=== PATIENT | female | born 1940 | race Caucasian/White ===

== ENCOUNTER 2023-05-14 14:13 | Outpatient (AMB) | payer MEDICARE, SELFPAY ==
[2023-05-14 14:35] VITALS: BP 128/64; PULSE 86; RESP 16; O2SAT 98; BMI 25.1
--- NOTE | 2023-05-14 14:35 | A.OFFVIS_ITS ---
Intake Vital Signs 3 05/14/23 14:35 Height 5 ft 2 in Weight 137 lb 4 oz BMI 25.1 BP 128/64 Blood Pressure Location Lt brachial Position Sitting Respiration 16 Pulse 86 Pulse Source Pulse Oximeter Pulse Oximetry (%) 98 Oxygen Delivery Method Room Air Intake Visit Reasons: Severe Spinal Stenosis/Confirmed Allergies No Known Allergies Allergy (Verified 05/14/23 14:24) HPI HPI Comments 2 History of Present Illness0 Details Leidy is a very pleasant 82 year old female who presents to the office today, accompanied by her son, for evaluation and management of her chronic lower back pain. Patient reports that she has been suffering with this pain for many years. She was living in [place] until approximately 2 months ago when she moved appear to be closer to her sons. In [place] patient had undergone injections, the last steroid injection was approximately 2 months ago and provided her with 1 month of pain relief. She has also had radiofrequency ablation of her lower back which did not provide her any relief. Patient is currently doing physical therapy and states that this exacerbates her pain. Diclofenac helped her in the past, but her doctor recently discontinued this due to worsening kidney function. She takes gabapentin 100 mg 3 times daily which gives her very little relief. She is on chronic opiates, but states her new doctor in [place] significantly decreased her dose from what she was taking in [place] and therefore is not providing her good pain relief. Unfortunately, patient was under the impression that we would be able to enroll her in our chronic opioid program today. She states that is why she came to see us. Patient had a recent MRI, results were reviewed with patient today, as per below. She has pending appointment with Neurosurgery at [facility]. Her appointment is several weeks away, she has heard about our minimally invasive Spine Center and would like a referral to Neurosurgery here. Patient sources right lower back pain with shooting pains into the leg and groin on the right side. She ambulates with a Rollator walker, and complains of pain in both legs with walking that resolves with rest. She states that she was very active while in [place] and is frustrated by the significant decline in her ability to perform activities of daily living since moving up to [place]. Patient denies red flag symptoms including new loss of bowel, bladder or saddle anesthesia. In terms of muscle damage condition is described as shooting, hot, burning, numb, stabbing, sharp and throbbing. Pain is negatively impacting patient's enjoyment of life, general activity, mood, normal work and sleep. [facility] Medical History (Updated 05/14/23 @ 15:26 by Annelise Mann APRN, WINDOWS SERVER ARCHITECT) Edema Spinal stenosis Other chronic pain Chronic kidney disease (CKD), stage III (moderate) Left ovarian cyst Essential (primary) hypertension Review of Systems Const All systems reviewed & are unremarkable except as noted in HPI and below Physical Exam Vital Signs: Last Vital Signs Pulse 86 05/14/23 14:35 Resp 16 05/14/23 14:35 BP 128/64 05/14/23 14:35 Pulse Ox 98 05/14/23 14:35 Oxygen Delivery Method Room Air 05/14/23 14:35 BMI result Body Mass Index 25.1 General: awake, alert, oriented. Answers questions appropriately. Fully engaged in examination. Skin: warm, dry, intact HEENT: Normocephalic. Hearing intact. Cardiac: External chest normal in appearance. Respiratory: No cough, audible wheezing or stridor. Abdomen: without gross distension. MS: No obvious swelling or deformities. Able to transition from sit to stand unassisted. Ambulates with bilaterally normal heel strike and toe off Nontender to palpation over PSIS, midline lumbar vertebrae BLE strength 5/5 Neurological: Oriented to person, place, time and situation. Thought process intact. Ambulates with use of rollator walker. Psychiatric: Appropriate mood and affect. Good judgment and insight. Results Reviewed Results Reviewed: MRI 04/2023 Assessment & Plan Assessment & Plan (1) Spinal stenosis: Code(s): M48.00 - Spinal stenosis, site unspecified (2) Neurogenic claudication: Code(s): R29.818 - Other symptoms and signs involving the nervous system Plan Leidy is a very pleasant 82-year-old female who presented to the office today for evaluation management of her chronic back pain. Unfortunately, patient was expecting to be prescribed opioid pain medications. She was on a chronic opiates while living in [place], and was looking to continue on them after recent move to [place]. Her primary care physician has given her low-dose opiates but recently decreased the amount she was prescribing. Patient states the opioid medications are the only thing that gave her some relief. Patient is not able to take oral nonsteroidal anti-inflammatory medications due to stage 3 kidney disease. Will try topical diclofenac sodium 3%, apply twice daily to most painful area as needed. Gabapentin increased to 300 mg twice daily. Patient advised on cautions for use. Referral placed to [place] [facility] They have been awaiting an appointment at [facility] but she has heard of our minimally invasive spine Center here and would like an appointment with them. They are aware a copy of the MRI on disc will be needed further neurosurgery appointment. We have requested a copy be provided to our office as well. Discussed options for treatment including diagnostic interventional testing, epidural steroid injections, peripheral nerve stimulation, MILD, RFA and more permanent neuromodulation. Patient interested in steroid injections in hopes she can get some pain relief, even if it is only for a couple weeks. Will schedule for Fluoroscopy guided Caudal MADDISON with catheter under local anesthetic. All questions and concerns have been answered and patient agrees with the plan. Follow up after neurosurgery appt, sooner if needed. Orders: Referrals 2 Neuro Spine Referral M48.00 - Spinal stenosis, site unspecified, M54.16 - Radiculopathy, lumbar region, R29.818 - Other symptoms and signs involving the nervous system Medications: New 2 diclofenac sodium 3% apply to most painful area twice daily as needed 1 appl topical BID 100 grams 0RF gabapentin 300 mg PO BID 90 caps 0RF Coding Level of Care Code New Pt Level 4 (37057) Diagnoses Spinal stenosis M48.00 Neurogenic claudication R29.818
== END 2023-05-14 15:15 | disposition home or self-care (01) ==
PROVIDERS: PCP Internal Medicine; Referring Provider Internal Medicine; Visit Provider Registered Nurse Emergency
DX: M48.00 Spinal stenosis, site unspecified (principal); R29.818 Other symptoms and signs involving the nervous system
CPT/HCPCS: 99204

== ENCOUNTER → 2023-05-14 14:13 | Outpatient (BNVA) | payer MEDICARE, SELFPAY | PROVIDERS: PCP Internal Medicine; Referring Provider Internal Medicine; Visit Provider Registered Nurse Emergency | DX: M48.00 Spinal stenosis, site unspecified (principal); R29.818 Other symptoms and signs involving the nervous system | CPT/HCPCS: 99202 ==

== ENCOUNTER 2023-06-24 06:15 | Outpatient (REF) | payer MEDICARE, SELFPAY | END 2023-06-24 06:16 | disposition home or self-care (01) | LOC: CF 06:15 | PROVIDERS: Visit Provider Anesthesiology | DX: Z13.89 Encounter for screening for other disorder (principal) ==

== ENCOUNTER 2023-07-22 06:12 | Outpatient (REF) | payer MEDICARE, SELFPAY ==
--- NOTE | ~2023-07-22 | FL_ITS ---
EXAMINATION: XR FLUOROSCOPY WITH IMAGES CLINICAL INFORMATION: Spinal stenosis, site unspecified COMPARISON: None available. TECHNIQUE: Fluoroscopy Supervised By: Dr. Tomi Moore. Fluoroscopy Time: 0.2 minutes. Cumulative Dose: 8.65 mGy. DAP: 0.150 Gycm2. Images: 21. FINDINGS: On the first 4 images, a metallic density projects over the sacrum and a forcep projects over various areas of the left side of the pubic symphysis. On the next 3 images metallic density projects over the sacrum and the tip of a needle projects over the left side of the pubic symphysis. Next 7 images, the patient is in the lateral position with view of the sacrum. The tip of a needle posterior then over the sacrum with injection of contrast. The next 7 images are in the AP projection the tip of the needle projected over the sacrum with contrast seen extending just above the lower sacrum to the upper sacrum to the inferior aspect of L5. FL/FL guidance in treatment room IMPRESSION: Fluoroscopic guidance provided for Dr. Moore for pain management.
== END 2023-07-22 06:13 | disposition home or self-care (01) ==
LOC: CF 06:12
PROVIDERS: Visit Provider Anesthesiology
DX: M48.062 Spinal stenosis, lumbar region with neurogenic claudication (principal); Z53.29 Procedure and treatment not carried out because of patient's decision for other reasons
CPT/HCPCS: 62323; J1885; J3301; Q9967

== ENCOUNTER 2023-07-22 10:32 | Outpatient (AMB) | payer MEDICARE, SELFPAY ==
--- NOTE | 2023-07-22 10:33 | MHC.OFFVIS ---
Intake Vital Signs 07/22/23 10:53 07/22/23 10:55 07/22/23 14:48 07/22/23 14:48 07/22/23 14:50 Height 5 ft 2 in 5 ft 2 in 5 ft 2 in 5 ft 2 in 5 ft 2 in Weight 137 lb 4 oz 137 lb 4 oz 137 lb 137 lb 137 lb BMI 25.1 25.1 25.1 25.1 25.1 BP 130/76 180/88 H 136/78 Blood Pressure Location Lt brachial Lt brachial Lt brachial Lt brachial Lt brachial Position Sitting Sitting Sitting Sitting Sitting Respiration 14 14 14 Pulse 69 71 71 Pulse Source Pulse Oximeter Pulse Oximeter Pulse Oximeter Pulse Oximeter Pulse Oximeter Pulse Oximetry (%) 100 100 100 Oxygen Delivery Method Room Air Room Air Room Air Room Air Room Air Comment pre-op post-op pre-op post-op 2 pm Intake Visit Reasons: CAUDAL MADDISON WITH CATHETER Allergies No Known Allergies Allergy (Verified 07/22/23 14:51) [facility] Medical History (Updated 05/14/23 @ 15:26 by Annelise Mann APRN, CASINO FLOOR WALKER) Edema Spinal stenosis Other chronic pain Chronic kidney disease (CKD), stage III (moderate) Left ovarian cyst Essential (primary) hypertension Physical Exam Vital Signs: Last Vital Signs Pulse 71 07/22/23 14:50 Resp 14 07/22/23 14:50 BP 136/78 07/22/23 14:50 Pulse Ox 100 07/22/23 14:50 Oxygen Delivery Method Room Air 07/22/23 14:50 BMI result Body Mass Index 25.1 Assessment & Plan Assessment & Plan (1) Spinal stenosis: Code(s): M48.00 - Spinal stenosis, site unspecified Plan: Caudal MADDISON with catheter. Informed consent was explained to the patient. Risks and benefits of the procedure including bleeding infection in peripheral nerve damage were explained to the patient. Risk of exacerbation of the pain after the procedure was also explained to the patient. Patient was explained that during the injection of the normal saline she might experience significant discomfort. All questions were explained and answered. The patient was taken inside of the operating room where she was positioned prone on the operating table. Time-out was performed delineating patient's name and date of , correct site, side, the nature of the procedure, patient's allergy, All operating room staff and the patient were participating in OR time-out procedure. the patient's lower back buttock and intragluteal crease were prepped with ChloraPrep and draped with sterile utility draped. C-arm was brought over the operating field and sq picture of sacral bone was delineated on the screen. the target of needle insertion was chosen as a caudal hiatus. The projection of the caudal hiatus to the skin was chosen as point of local anesthetic injection. 2% lidocaine 3 mls were injected into the skin. After that 18 G Tuohy needle was inserted through the skin and under intermittent AP and lateral guide was advanced into the sacral hiatus and into the caudal canal . injection of the contrast demonstrated epidural spread of the contrast. After that 22 g epidual catheter was advanced into the epidural space until the resistance was met approximately at 22 cm and the injection of the contrast was performed again. The injection of the contrast was delineating epidural space at the L5-S1 intervale with the spread of the epidural contrast mostly on the left side of the lumbar spine.. After that injection of 3 mls of normal saline was performed into the catheter. Patient reported severe pain on saline injection she complained on excruciating pain and decision was made to not to inject usual 25-30 cc of saline into the epidural space. Instead injection of the lidocaine 1% preservative-free mixed with Kenalog was started to be performed into the catheter. However the patient again complained on severe excruciating pain, at this moment decision was made to abort the procedure. The needle and epidural catheter were removed EN Amos, epidural catheter tip was intact. Bacitracin ointment was applied to needle insertion site and sterile dressing was applied using 4 x 4 and tape. The patient was taking to the stretcher and brought for the recovery room. She continued to complain on severe pain. The muscular strength of the bilateral lower extremities was examined. It appeared to be intact. Patient reported also numbness on bilateral lower extremities which is usual occurrence on injection of the lidocaine into the epidural space. 10 mg oxycodone was order it and given to the patient to alleviate her pain. In 90 minutes the patient was reexamined, she still complained on severe pain. She was able to stand up and walk however stated that walking cause severe pain. She preferred to be sitting in the wheelchair. The 45 mg of ketorolac tromethamine was injected intragluteal to help her pain. Eventually patient's pain subsided and she was able to be transferred the wheelchair to the car of her son and she went home. (2) Neurogenic claudication: Code(s): R29.818 - Other symptoms and signs involving the nervous system Michele Forbes is a very pleasant 82-year-old female who presented to the office today for evaluation management of her chronic back pain. Unfortunately, patient was expecting to be prescribed opioid pain medications. She was on a chronic opiates while living in [place], and was looking to continue on them after recent move to [place]. Her primary care physician has given her low-dose opiates but recently decreased the amount she was prescribing. Patient states the opioid medications are the only thing that gave her some relief. Patient is not able to take oral nonsteroidal anti-inflammatory medications due to stage 3 kidney disease. Will try topical diclofenac sodium 3%, apply twice daily to most painful area as needed. Gabapentin increased to 300 mg twice daily. Patient advised on cautions for use. Referral placed to [place] [facility] They have been awaiting an appointment at [facility] but she has heard of our minimally invasive spine Center here and would like an appointment with them. They are aware a copy of the MRI on disc will be needed further neurosurgery appointment. We have requested a copy be provided to our office as well. Discussed options for treatment including diagnostic interventional testing, epidural steroid injections, peripheral nerve stimulation, MILD, RFA and more permanent neuromodulation. Patient interested in steroid injections in hopes she can get some pain relief, even if it is only for a couple weeks. Will schedule for Fluoroscopy guided Caudal MADDISON with catheter under local anesthetic. All questions and concerns have been answered and patient agrees with the plan. Follow up after neurosurgery appt, sooner if needed. Coding Level of Care Code Procedure Only Diagnoses Spinal stenosis M48.00 Neurogenic claudication R29.818
[2023-07-22 10:53] VITALS: BMI 25.1
[2023-07-22 10:55] VITALS: BMI 25.1
[2023-07-22 14:48] VITALS: BP 130/76; BP 180/88; PULSE 69; PULSE 71; RESP 14; O2SAT 100; BMI 25.1
[2023-07-22 14:50] VITALS: BP 136/78; PULSE 71; RESP 14; O2SAT 100; BMI 25.1
== END 2023-07-22 12:04 | disposition home or self-care (01) ==
LOC: HO.PMCPRC 10:32
PROVIDERS: PCP Internal Medicine; Visit Provider Anesthesiology
DX: M48.062 Spinal stenosis, lumbar region with neurogenic claudication (principal); R29.818 Other symptoms and signs involving the nervous system
CPT/HCPCS: 62323

== ENCOUNTER 2023-08-01 13:52 | Outpatient (AMB) | payer MEDICARE, SELFPAY ==
--- NOTE | 2023-08-01 13:53 | A.OFFVIS_ITS ---
Intake Intake Visit Reasons: lower back pain, right knee Allergies No Known Allergies Allergy (Verified 07/22/23 14:51) HPI HPI Comments 2 History of Present Illness0 Details Telephone visit completed today which is for follow-up lower back pain. 07/26/2023 patient was seen in our [facility] area for attempts at caudal MADDISON with catheter. She is unable to tolerate the procedure and ultimately aborted shortly after starting. She was only able to tolerate injection of 3 mL saline before reporting severe pain and inability to continue with the procedure. Dr. Moore attempted to administer steroids which she was also unable to tolerate. Patient reports since the procedure she has noticed some improvement of her symptoms and mobility. She was offered this procedure to be repeated with sedation which she would like to schedule at this time. Patient denies red flag symptoms including new loss of bowel, bladder or saddle anesthesia. Patient reports after last visit she saw Dr. Rice, neurosurgery at [facility]. He advised her that surgery was not warranted at this time. Prior: Leidy is a very pleasant 82 year old female who presents to the office today, accompanied by her son, for evaluation and management of her chronic lower back pain. Patient reports that she has been suffering with this pain for many years. She was living in [place] until approximately 2 months ago when she moved appear to be closer to her sons. In [place] patient had undergone injections, the last steroid injection was approximately 2 months ago and provided her with 1 month of pain relief. She has also had radiofrequency ablation of her lower back which did not provide her any relief. Patient is currently doing physical therapy and states that this exacerbates her pain. Diclofenac helped her in the past, but her doctor recently discontinued this due to worsening kidney function. She takes gabapentin 100 mg 3 times daily which gives her very little relief. She is on chronic opiates, but states her new doctor in [place] significantly decreased her dose from what she was taking in [place] and therefore is not providing her good pain relief. Unfortunately, patient was under the impression that we would be able to enroll her in our chronic opioid program today. She states that is why she came to see us. Patient had a recent MRI, results were reviewed with patient today, as per below. She has pending appointment with Neurosurgery at [facility]. Her appointment is several weeks away, she has heard about our minimally invasive Spine Center and would like a referral to Neurosurgery here. Patient sources right lower back pain with shooting pains into the leg and groin on the right side. She ambulates with a Rollator walker, and complains of pain in both legs with walking that resolves with rest. She states that she was very active while in [place] and is frustrated by the significant decline in her ability to perform activities of daily living since moving up to [place]. Patient denies red flag symptoms including new loss of bowel, bladder or saddle anesthesia. In terms of muscle damage condition is described as shooting, hot, burning, numb, stabbing, sharp and throbbing. Pain is negatively impacting patient's enjoyment of life, general activity, mood, normal work and sleep. [facility] Medical History (Updated 05/14/23 @ 15:26 by Annelise Mann APRN, GILDA) Edema Spinal stenosis Other chronic pain Chronic kidney disease (CKD), stage III (moderate) Left ovarian cyst Essential (primary) hypertension Review of Systems Const All systems reviewed & are unremarkable except as noted in HPI and below Physical Exam Physical exam deferred, telephone visit only Results Reviewed Results Reviewed: MRI 04/2023 Assessment & Plan Assessment & Plan (1) Spinal stenosis: Code(s): M48.00 - Spinal stenosis, site unspecified (2) Neurogenic claudication: Code(s): R29.818 - Other symptoms and signs involving the nervous system Plan Telephone visit completed today with Leidy for follow-up chronic back pain, 10 days status post attempted caudal MADDISON with catheter. Unfortunately patient was able to tolerate the procedure without sedation, prior to instillation of total volume normal saline or steroids patient reported severe pain and Dr Moore elected to abort the procedure. He advised the patient if she did feel that the small amount of saline that was instilled to remove adhesions was of some benefit to her she could repeat the procedure with sedation. She would like to schedule that at this time. Continue with chronic opioids as prescribed by primary care doctor. Discussed options for treatment including diagnostic interventional testing, epidural steroid injections, peripheral nerve stimulation, MILD, RFA and more permanent neuromodulation. Will schedule for Fluoroscopy guided Caudal MADDISON with catheter with sedation/anesthesia. All questions and concerns have been answered and patient agrees with the plan. Follow up after procedure, sooner if needed. Telehealth Telehealth Location of provider rendering services: practice address Location of patient: address on file Patient Identification confirmed using: Name, : Yes Telehealth method: voice only Patient verbally consented to treatment: Yes Patient verbally consented to billing insurance company: Yes Patient informed of any privacy concerns related to visit: Yes Coding Level of Care Code Tele Est Pt Level 3 (79967) Diagnoses Spinal stenosis M48.00 Neurogenic claudication R29.818
== END 2023-08-01 14:12 | disposition home or self-care (01) ==
LOC: HO.PMC 13:52
PROVIDERS: PCP Internal Medicine; Visit Provider Registered Nurse Emergency
DX: M48.00 Spinal stenosis, site unspecified (principal); R29.818 Other symptoms and signs involving the nervous system
CPT/HCPCS: 99442

== ENCOUNTER → 2023-08-01 13:52 | Outpatient (BNVA) | payer MEDICARE, SELFPAY | PROVIDERS: PCP Internal Medicine; Visit Provider Registered Nurse Emergency ==

== ENCOUNTER 2023-12-03 13:50 | Outpatient (AMB) | payer MEDICARE, SELFPAY ==
[2023-12-03 13:55] VITALS: BP 120/64; BMI 26.9
--- NOTE | 2023-12-03 13:55 | A.OFFVIS_ITS ---
Vital Signs 3 12/03/23 13:55 Height 5 ft 2 in Weight 147 lb BMI 26.9 BP 120/64 Blood Pressure Location Lt brachial Position Sitting Intake Visit Reasons: Low Back pain Intake Note: pt is here for follow up visit, pt is on keflex right now for leg infection Tool And Die Maker Required: No Allergies No Known Allergies Allergy (Verified 12/03/23 13:57) HPI Comments Details: Leidy presents back to the office today for follow-up lower back pain Has been taking gabapentin with minimal relief, she states Lyrica helped better in the past. Would like to switch back to Lyrica. She is aware that these can not be taken together and she was discontinue use of gabapentin prior to taking Lyrica. Patient is now ready to proceed with previously discussed caudal MADDISON with catheter under sedation. Patient was seen at [facility] for cellulitis to the right lower leg. Currently taking antibiotic which she started yesterday. Denies any recent fall or trauma, states she hit her leg on her Rollator walker. Prior: Telephone visit completed today which is for follow-up lower back pain. 07/26/2023 patient was seen in our procedure area for attempts at caudal MADDISON with catheter. She is unable to tolerate the procedure and ultimately aborted shortly after starting. She was only able to tolerate injection of 3 mL saline before reporting severe pain and inability to continue with the procedure. Dr. Moore attempted to administer steroids which she was also unable to tolerate. Patient reports since the procedure she has noticed some improvement of her symptoms and mobility. She was offered this procedure to be repeated with sedation which she would like to schedule at this time. Patient denies red flag symptoms including new loss of bowel, bladder or saddle anesthesia. Patient reports after last visit she saw Dr. Rice, neurosurgery at [facility]. He advised her that surgery was not warranted at this time. Prior: Leidy is a very pleasant 82 year old female who presents to the office today, accompanied by her son, for evaluation and management of her chronic lower back pain. Patient reports that she has been suffering with this pain for many years. She was living in [place] until approximately 2 months ago when she moved appear to be closer to her sons. In [place] patient had undergone injections, the last steroid injection was approximately 2 months ago and provided her with 1 month of pain relief. She has also had radiofrequency ablation of her lower back which did not provide her any relief. Patient is currently doing physical therapy and states that this exacerbates her pain. Diclofenac helped her in the past, but her doctor recently discontinued this due to worsening kidney function. She takes gabapentin 100 mg 3 times daily which gives her very little relief. She is on chronic opiates, but states her new doctor in [place] significantly decreased her dose from what she was taking in [place] and therefore is not providing her good pain relief. Unfortunately, patient was under the impression that we would be able to enroll her in our chronic opioid program today. She states that is why she came to see us. Patient had a recent MRI, results were reviewed with patient today, as per below. She has pending appointment with Neurosurgery at [facility]. Her appointment is several weeks away, she has heard about our minimally invasive Spine [facility] and would like a referral to Neurosurgery here. Patient sources right lower back pain with shooting pains into the leg and groin on the right side. She ambulates with a Rollator walker, and complains of pain in both legs with walking that resolves with rest. She states that she was very active while in [place] and is frustrated by the significant decline in her ability to perform activities of daily living since moving up to [place]. Patient denies red flag symptoms including new loss of bowel, bladder or saddle anesthesia. In terms of muscle damage condition is described as shooting, hot, burning, numb, stabbing, sharp and throbbing. Pain is negatively impacting patient's enjoyment of life, general activity, mood, normal work and sleep. [facility] Medical History (Updated 05/14/23 @ 15:26 by Annelise Mann APRN, SPLICER HELPER) Edema Spinal stenosis Other chronic pain Chronic kidney disease (CKD), stage III (moderate) Left ovarian cyst Essential (primary) hypertension Social History (Updated 12/03/23 @ 14:01 by Grace Paulino [facility]) Patient Tobacco Use Status: Former Tobacco user Review of Systems Const All systems reviewed & are unremarkable except as noted in HPI and below Physical Exam Vital Signs: Last Vital Signs BP 120/64 12/03/23 13:55 BMI result Body Mass Index 26.9 General: awake, alert, oriented. Answers questions appropriately. Fully engaged in examination. Skin: warm, dry. Covered wound right lares. No signs of systemic infection. No warmth to surrounding skin or lymphangitis. HEENT: Normocephalic. Hearing intact. Cardiac: External chest normal in appearance. Respiratory: No cough, audible wheezing or stridor. Abdomen: without gross distension. MS: No obvious swelling or deformities. Able to transition from sit to stand unassisted. Ambulates with bilaterally normal heel strike and toe off Nontender to palpation over PSIS, midline lumbar vertebrae BLE strength 5/5 Neurological: Oriented to person, place, time and situation. Thought process intact. Ambulates with use of rollator walker. Psychiatric: Appropriate mood and affect. Good judgment and insight. Results Reviewed Results Reviewed: MRI 04/2023 Assessment & Plan Assessment & Plan (1) Spinal stenosis: Code(s): M48.00 - Spinal stenosis, site unspecified Category: Medical (2) Neurogenic claudication: Code(s): R29.818 - Other symptoms and signs involving the nervous system Category: Medical Plan To the presented back to the office today for follow-up lower back pain She would like to proceed with previously scheduled caudal MADDISON with catheter under sedation. Continue with chronic opioids as prescribed by primary care doctor. Discussed options for treatment including diagnostic interventional testing, epidural steroid injections, peripheral nerve stimulation, MILD, RFA and more permanent neuromodulation. Discontinue use of gabapentin, new Rx for Lyrica 50 mg p.o. b.i.d.. Patient is advised on cautions for use. She is aware that she should not take Lyrica with gabapentin. All questions and concerns have been answered and patient agrees with the plan. Follow up after procedure, sooner if needed. Medications: New 2 pregabalin (Lyrica) Discontinue use of gabapentin prior to starting this medication. Do not take with gabapentin. 50 mg PO BID 60 caps 1RF Discontinued 2 gabapentin Discontinued Reason: Patient no longer taking 300 mg PO BID 90 caps 3RF Coding Level of Care Code Est Pt Level 4 (09578) Diagnoses Spinal stenosis M48.00 Neurogenic claudication R29.818
== END 2023-12-03 14:26 | disposition home or self-care (01) ==
PROVIDERS: PCP Internal Medicine; Visit Provider Registered Nurse Emergency
DX: M48.00 Spinal stenosis, site unspecified (principal); R29.818 Other symptoms and signs involving the nervous system
CPT/HCPCS: 99214

== ENCOUNTER → 2023-12-03 13:50 | Outpatient (BNVA) | payer MEDICARE, SELFPAY | PROVIDERS: PCP Internal Medicine; Visit Provider Registered Nurse Emergency | DX: M48.00 Spinal stenosis, site unspecified (principal); R29.818 Other symptoms and signs involving the nervous system | CPT/HCPCS: 99212 ==

== ENCOUNTER 2025-01-28 13:03 | Outpatient (AMB) | payer MEDICARE, SELFPAY ==
--- OUTSIDE RECORDS SUMMARY | 2022-11-17 20:00 | XMS_ITS | Continuity of Care Document ---
Author Organization [facility] Address [address] [place] [id number] Phone Care Team Providers Care Care Worker Name Role Phone Danitza JOSEPH, Lee Woodward Unavailable Unavaila ble Allergies, Adverse Reactions, Alerts Substance Reaction Status Criticality No Known Allergies Active No Inform ation No Known Drug Allergies Active No I nformation No Known Allergies Active No Inform ation No Known Drug Allergies Active No I nformation Advance Directives Directive Yes / No Effective Date File Name No Information Encounters Encounter Description Practice Location Reason(s) For Visit Diagnoses Date Provider Providers Copied on Encounter [facility], [address] [place], [place], [id number] , [place] tel: [phone] Marianna Piper QES Other secondary cataract, bilateralNonexudative age-related macular degeneration, bilateral, intermediate dry stageOpen angle with borderline findings, low risk, bilateral Adolfo-0 [address] [place], [place], [id number] , [place]. tel: [phone] [facility], [facility] [place], [place], [id number] , [place] tel: [phone] Kalona Piper QES Nonexudative age-related macular degeneration, bilateral, early dry stageOpen angle with borderline findings, low risk, bilateral Dec-0 202 2 Newell [address]um[address] [place], [address], [place]. tel: [phone] [facility], [address], [place], [id number] , [place] tel:+ Kalona Piper QES Nonexudative age-related macular degeneration, bilateral, early dry stageCataract extraction status, right eyeOpen angle with borderline findings, low risk, bilateralCataract extraction status, left eye October- 2 Newell Callum. [address] [facility], [place], [address], [place]. tel:[phone] [facility], [address], [place], [place], [id number] , [place] tel: Kalona Piper QES Cataract extraction status, left eyeCataract extraction status, right eye October- [address] [place], [place], [id number] , [place]. tel:[phone] [facility], [address], [place], [place], [id number] , [place] tel:[phone] [facility] Age-related nuclear cataract, left eyeAge-related nuclear cataract, left eye 2 Newell Callum[address], [place], [address], [place]. tel:[phone] [facility], [address] [facility], [place], [place], [id number] , [place] tel: Marianna Bolden QES Myopia, bilateralCataract extraction status, right eyeRegular astigmatism, right eyeAge-related nuclear cataract, left eye October- [address] [facility], [place], [place], [id number] , [place]. tel:[phone] [facility], [address], [place], [place], [id number] , [place] tel: Marianna Piper QES Cataract extraction status, right eyeAge-related nuclear cataract, left eye May- [address], [place], [place], [id number] , [place]. tel: [phone] [facility], [address], [place], [place], [id number] , [place] tel: [phone] [facility] Age-related nuclear cataract, right eyeAge-related nuclear cataract, right eye - 2 Osiris [address]olen[address] [place], [address], [place]. tel: [phone] [facility], [address] [place] [address], [place], [id number] , [place] tel: [phone] Marianna DAVIS Open angle with borderline findings, low risk, unspecified eyeUnspecified ptosis of bilateral eyelidsNonexudative age-related macular degeneration, bilateral, early dry stageCombined forms of age-related cataract, bilateralAge-related nuclear cataract, bilateralAge-related nuclear cataract, bilateralAge-related nuclear cataract, bilateralAge-related nuclear cataract, bilateralNonexudative age-related macular degeneration, bilateral, early dry stageUnspecified chorioretinal scars, right eyeOpen angle with borderline findings, low risk, right eyePersonal history of other diseases of the nervous system and sense organsNonexudative age-related macular degeneration, bilateral, early dry stageDry eye syndrome of bilateral lacrimal glandsNonexudative age-related macular degeneration, bilateral, early dry stageDry eye syndrome of bilateral lacrimal glandsAge-related nuclear cataract, bilateralDry eye syndrome of bilateral lacrimal glandsOpen angle with borderline findings, low risk, bilateralVitreous degeneration, bilateralUnspecified ptosis of bilateral eyelidsOpen angle with borderline findings, low risk, unspecified eyeNonexudative age-related macular degeneration, bilateral, early dry stageOpen angle with borderline findings, low risk, bilateralOpen angle with borderline findings, low risk, bilateralCombined forms of age-related cataract, bilateralUnspecified ptosis of bilateral eyelidsUnspecified chorioretinal scars, right eyeConjunctival hemorrhage, left eyeDry eye syndrome of bilateral lacrimal glandsVitreous degeneration, bilateralUnspecified chorioretinal scars, right eyePersonal history of other diseases of the nervous system and sense organsOcular pain, right eyeOpen angle with borderline findings, low risk, right eyePersonal history of other diseases of the nervous system and sense organsUnspecified chorioretinal scars, right eyeVitreous degeneration, bilateralUnspecified ptosis of bilateral eyelidsDry eye syndrome of bilateral lacrimal glandsAge-related nuclear cataract, bilateralOcular pain, right eyeOpen angle with borderline findings, low risk, unspecified eyeOpen angle with borderline findings, low risk, bilateralAge-related nuclear cataract, right eyeOpen angle with borderline findings, low risk, bilateralOpen angle with borderline findings, low risk, bilateralAge-related nuclear cataract, bilateralCorneal ectasia, bilateralAge-related nuclear cataract, bilateralUnspecified ptosis of bilateral eyelidsVitreous degeneration, bilateralUnspecified chorioretinal scars, right eyeCorneal ectasia, bilateralAge-related nuclear cataract, bilateralOpen angle with borderline findings, low risk, right eyeVitreous degeneration, bilateralDry eye syndrome of bilateral lacrimal glandsVitreous degeneration, bilateralAge-related nuclear cataract, right eye Sep- 2 [address] [place], [address], [place]. tel: [phone] [facility], [address] [place] [address], [id number] , [place] tel: [phone] Marianna Bolden QGALO Open angle with borderline findings, low risk, bilateralAge-related nuclear cataract, bilateralVitreous degeneration, bilateralNonexudative age-related macular degeneration, bilateral, early dry stagePersonal history of other diseases of the nervous system and sense organs Aug-3 0 2 Danitza Woodward. [address] [place], [place], [id number] , [place]. tel: [phone] [facility], [address] [place] [address], [id number] , [place] tel: [phone] [facility] Location Age-related nuclear cataract, bilateralVitreous degeneration, bilateralUnspecified ptosis of bilateral eyelidsPersonal history of other diseases of the nervous system and sense organsNonexudative age-related macular degeneration, bilateral, early dry stageOcular pain, right eyeUnspecified chorioretinal scars, right eyeOpen angle with borderline findings, low risk, bilateralDry eye syndrome of bilateral lacrimal glands Aug-2 1 [facility] . [address] [place] [address], [address], [place]. tel: [phone] [facility], [address] [place] [address], [id number] , [place] tel: [phone] [facility] Unspecified ptosis of bilateral eyelidsDry eye syndrome of bilateral lacrimal glandsNonexudative age-related macular degeneration, bilateral, early dry stagePersonal history of other diseases of the nervous system and sense organsVitreous degeneration, bilateralOpen angle with borderline findings, low risk, bilateralAge-related nuclear cataract, bilateralOcular pain, right eyeUnspecified chorioretinal scars, right eye 4-201 9 [facility] . [address] [place] [address], [address], [place]. tel: [phone] [facility], [address] [place] [address], [id number] , [place] tel: [phone] [facility] Unspecified chorioretinal scars, right eyeAge-related nuclear cataract, bilateralUnspecified ptosis of bilateral eyelidsDry eye syndrome of bilateral lacrimal glandsOpen angle with borderline findings, low risk, bilateralNonexudative age-related macular degeneration, bilateral, early dry stageVitreous degeneration, bilateral 2-201 8 [facility] . [address] [place] [address], [address], [place]. tel: [phone] [facility], [address] [place] [address], [id number] , [place] tel: [phone] [facility] Vitreous degeneration, bilateralDry eye syndrome of bilateral lacrimal glandsUnspecified chorioretinal scars, right eyeUnspecified ptosis of bilateral eyelidsNonexudative age-related macular degeneration, bilateral, early dry stageOpen angle with borderline findings, low risk, bilateralAge-related nuclear cataract, bilateral 8-201 7 [facility] . [address] [place] [address], [address], [place]. tel: [phone] [facility], [address] [place] [address], [id number] , [place] tel: [phone] [facility] Dry eye syndrome of bilateral lacrimal glandsOpen angle with borderline findings, low risk, bilateralOpen angle with borderline findings, low risk, unspecified eyeUnspecified ptosis of bilateral eyelidsAge-related nuclear cataract, bilateral Jan- 8-201 6 [facility] . [address] [place] [address], [facility], . tel: [phone] [facility], [address] [place] [address], [id number] , tel: [phone] [facility] Open angle with borderline findings, low risk, right eyeAge-related nuclear cataract, right eyeAge-related nuclear cataract, bilateralOpen angle with borderline findings, low risk, unspecified eye Jan- 0-201 5 [facility] . [address] [place] [address], [facility], . tel: [phone] [facility], [address] [place] [address], [address] [place] [address] , tel: [phone] [facility] Location Open angle with borderline findings, low risk, unspecified eyeConjunctival hemorrhage, left eyeAge-related nuclear cataract, right eye Oct-0 7-201 4 [facility] . [address] [place] [address], [facility], . tel: [phone] [facility], [address] [place] [address], [id number] , tel: [phone] [facility] Location Chorioretinal Scar UnspecCataract Nuclear ScleroticOpen angle with borderline findings, low risk, right eyeDry Eye SyndromeOpen Angle With Borderline Findings Low RiskAge-related nuclear cataract, bilateralVitreous Detachment Degenerat 1-201 4 [facility] . [address] [place] [address], [facility], . tel: [phone] Family History Family Member Type Diagnosis Age At Onset Problem (finding) Fhx of glaucoma Close relative Problem (finding) No Significant Family History Problem (finding) Fhx of diabetes mellitu s Problem (finding) Fhx of retinal disease Aunt Problem (finding) Fhx of degenerative dis order of macula Payers Payer name Insurance type Covered libertarian ID Authoriza tion(s) No Information Social History Type Description Quantity Date Captured Comments Alcohol Use Details Unknown Caffeine Use Details Unknown Tobacco Use Status Former smoker Smoking Status Former smoker Non-Smoking Tobacco Use Details : No Details Available : No Details Available Sex Female Chief Complaint And Reason For Visit No Information Reason For Referral Reason For Referral No Information History Of Present Illness Encounter Date Complaint History Of Prese nt Illness No Information Functional Status Date Functional Assessmen t No Information Instructions Date Instruction Additional Infor mation Impression/Plan Related to [place] revealed posterior capsular opacification. Impression/Plan Related to [place] revealed intermediate age- related macular degeneration. Impression/Plan Related to [place] revealed the patient is at risk for glaucoma based on several risk factors. Impression/Plan Related to [place] revealed mild age-related macular degeneration. Impression/Plan Related to [place] revealed the patient is at risk for glaucoma based on several risk factors. Impression/Plan Related to [place] revealed the patient is at risk for glaucoma based on several risk factors. Impression/Plan Related to Patie nt is doing well post operatively. Reviewed drop schedule with patient and answered all questions. Impression/Plan Related to Patie nt is doing well post operatively. Impression/Plan Related to [place] revealed mild age-related macular degeneration. Impression/Plan Related to Patie nt is doing well post operatively. Reviewed drop schedule with patient and answered all questions. Impression/Plan Related to Patie nt is doing well post operatively. Reviewed drop schedule with patient and answered all questions. Impression/Plan Related to [place] revealed cataract. Impression/Plan Related to [place] revealed cataract. Impression/Plan Related to Patie nt is doing well post operatively. Reviewed drop schedule with patient and answered all questions. Impression/Plan Related to Refra ctive testing reveals astigmatism. Impression/Plan Related to Refra ctive testing reveals myopia (nearsightedness). Impression/Plan Related to [place] revealed cataract. Impression/Plan Related to [place] revealed cataract. Impression/Plan Related to Patie nt is doing well post operatively. Reviewed drop schedule with patient and answered all questions. Impression/Plan Related to [place] revealed cataract. Impression/Plan Related to [place] revealed cataract. Impression/Plan Related to [place] revealed bulging of the cornea. Impression/Plan Related to Diagn osis Description: Age-related nuclear cataract of both eyes \n Impression/Plan Related to Diagn osis Description: Ptosis of both eyelids \nDiagnosis Code: 374.30 Impression/Plan Related to Diagn osis Description: Chorioretinal scar of right eye \nDiagnosis Code: 363.30 Impression/Plan Related to Diagn osis Description: Open angle glaucoma suspect \nDiagnosis Code: 365.01 Impression/Plan Related to Diagn osis Description: NS CATARACT, NUCLEAR SCLEROTIC OU \nDiagnosis Code: 366.16 Impression/Plan Related to Diagn osis Description: Ptosis of both eyelids \nDiagnosis Code: 374.30 Impression/Plan Related to [place] revealed bulging of the cornea. Impression/Plan Related to Diagn osis Description: History of trigeminal neuralgia Impression/Plan Related to Diagn osis Description: Chorioretinal scar of right eye \nDiagnosis Code: 363.30 Impression/Plan Related to Diagn osis Description: PVD (posterior vitreous detachment), both eyes \nDiagnosis Code: 379.21 Impression/Plan Related to Diagn osis Description: Age-related nuclear cataract of both eyes \nDiagnosis Code: 366.16 Impression/Plan Related to Diagn osis Description: Ptosis of both eyelids \nDiagnosis Code: 374.30 Impression/Plan Related to Diagn osis Description: Ptosis of both eyelids \nDiagnosis Code: 374.30 Impression/Plan Related to Diagn osis Description: 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 \nDiagnosis Code: 362.51 Impression/Plan Related to Diagn osis Description: Pain around right eye \nDiagnosis Code: 379.91 Impression/Plan Related to Diagn osis Description: Age-related nuclear cataract of both eyes \nDiagnosis Code: 366.16 Impression/Plan Related to Diagn osis Description: Age-related nuclear cataract of both eyes \nDiagnosis Code: 366.16 Impression/Plan Related to Diagn osis Description: OPEN ANGLE WITH BORDERLINE FINDINGS AND LOW GLAUCOMA RISK IN RIGHT EYE \nDiagnosis Code: 365.01 Impression/Plan Related to Diagn osis Description: GLAUCOMA, OPEN- ANGLE W/BRDRLN FNDG OD \nDiagnosis Code: 365.01 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 \n Impression/Plan Related to Diagn osis Description: Age-related nuclear cataract of both eyes \nDiagnosis Code: 366.16 Impression/Plan Related to Diagn osis Description: PVD (posterior vitreous detachment), both eyes \nDiagnosis Code: 379.21 Impression/Plan Related to Diagn osis Description: 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 \nDiagnosis Code: 375.15 Impression/Plan Related to Diagn osis Description: History of trigeminal neuralgia \nDiagnosis Code: V12.49 Impression/Plan Related to Diagn osis Description: AGE-RELATED NUCLEAR CATARACT OF BOTH EYES \nDiagnosis Code: 366.16 Impression/Plan Related to Diagn osis Description: CONJUNCTIVAL HEMORRHAGE OF LEFT EYE \nDiagnosis Code: 372.72 Impression/Plan Related to Diagn osis Description: INSUFFICIENCY, TEAR FILM NOS OU \nDiagnosis Code: 375.15 Impression/Plan Related to Diagn osis Description: Age-related nuclear cataract of both eyes \n Impression/Plan Related to Diagn osis Description: Open angle with borderline findings and low glaucoma risk in both eyes \nDiagnosis Code: 365.01 Impression/Plan Related to Diagn osis Description: 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 \nDiagnosis Code: 375.15 Impression/Plan Related to Diagn osis Description: 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 \nDiagnosis Code: 375.15 Impression/Plan Related to Diagn osis Description: PVD (posterior vitreous detachment), both eyes \nDiagnosis Code: 379.21 Impression/Plan Related to Diagn osis Description: Open angle with borderline findings and low glaucoma risk in both eyes \nDiagnosis Code: 365.01 Impression/Plan Related to Diagn osis Description: OPEN ANGLE WITH BORDERLINE FINDINGS AND LOW GLAUCOMA RISK IN RIGHT EYE \nDiagnosis Code: 365.01 Impression/Plan Related to Diagn osis Description: NS Cataract, Nuclear Sclerotic OU \nDiagnosis Code: 366.16 Impression/Plan Related to Diagn osis Description: NS Cataract, Nuclear Sclerotic OU \nDiagnosis Code: 366.16 Impression/Plan Related to Diagn osis Description: SCAR, CHORIORETINAL NOS OD \nDiagnosis Code: 363.30 Impression/Plan Related to Diagn osis Description: History of trigeminal neuralgia \nDiagnosis Code: V12.49 Impression/Plan Related to Diagn osis Description: Open angle with borderline findings and low glaucoma risk in both eyes \nDiagnosis Code: 365.01 Impression/Plan Related to Diagn osis Description: Open angle with borderline findings and low glaucoma risk in both eyes \nDiagnosis Code: 365.01 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 \nDiagnosis Code: 362.51 Impression/Plan Related to Diagn osis Description: Ptosis of both eyelids \nDiagnosis Code: 374.30 Impression/Plan Related to Diagn osis Description: AGE-RELATED NUCLEAR CATARACT OF BOTH EYES \nDiagnosis Code: 366.16 Impression/Plan Related to Diagn osis Description: AGE-RELATED NUCLEAR CATARACT OF BOTH EYES \nDiagnosis Code: 366.16 Impression/Plan Related to Diagn osis Description: PVD VITREOUS DEGENERATION OU \nDiagnosis Code: 379.21 Impression/Plan Related to Diagn osis Description: Age-related nuclear cataract of both eyes \n Impression/Plan Related to Diagn osis Description: Open angle with borderline findings and low glaucoma risk in both eyes \n Impression/Plan Related to Diagn osis Description: Pain around right eye \nDiagnosis Code: 379.91 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 \nDiagnosis Code: 362.51 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 \nDiagnosis Code: 362.51 Impression/Plan Related to Diagn osis Description: Open angle with borderline findings and low glaucoma risk in both eyes \nDiagnosis Code: 365.01 Impression/Plan Related to Diagn osis Description: 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 \nDiagnosis Code: 375.15 Impression/Plan Related to Diagn osis Description: Open angle glaucoma suspect \nDiagnosis Code: 365.01 Impression/Plan Related to Diagn osis Description: Open angle glaucoma suspect \nDiagnosis Code: 365.01 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 \n Impression/Plan Related to Diagn osis Description: Age-related nuclear cataract of both eyes \n Impression/Plan Related to Diagn osis Description: History of trigeminal neuralgia Impression/Plan Related to Diagn osis Description: Open angle with borderline findings and low glaucoma risk in both eyes \n Impression/Plan Related to [place] revealed a posterior vitreous detachment. Impression/Plan Related to Diagn osis Description: Age-related nuclear cataract of both eyes \nDiagnosis Code: 366.16 Impression/Plan Related to Diagn osis Description: Open angle with borderline findings and low glaucoma risk in both eyes \nDiagnosis Code: 365.01 Impression/Plan Related to Diagn osis Description: History of trigeminal neuralgia \nDiagnosis Code: V12.49 Impression/Plan Related to Diagn osis Description: Pain around right eye \nDiagnosis Code: 379.91 Impression/Plan Related to Diagn osis Description: Ptosis of both eyelids \nDiagnosis Code: 374.30 Impression/Plan Related to Diagn osis Description: Chorioretinal scar of right eye \nDiagnosis Code: 363.30 Impression/Plan Related to Diagn osis Description: PVD (posterior vitreous detachment), both eyes \nDiagnosis Code: 379.21 Impression/Plan Related to Diagn osis Description: 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 \nDiagnosis Code: 375.15 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 \nDiagnosis Code: 362.51 Impression/Plan Related to Diagn osis Description: Ptosis of both eyelids \nDiagnosis Code: 374.30 Impression/Plan Related to Diagn osis Description: Chorioretinal scar of right eye \nDiagnosis Code: 363.30 Impression/Plan Related to Diagn osis Description: Age-related nuclear cataract of both eyes \nDiagnosis Code: 366.16 Impression/Plan Related to Diagn osis Description: PVD (posterior vitreous detachment), both eyes \nDiagnosis Code: 379.21 Impression/Plan Related to Diagn osis Description: Pain around right eye \nDiagnosis Code: 379.91 Impression/Plan Related to Diagn osis Description: History of trigeminal neuralgia \nDiagnosis Code: V12.49 Impression/Plan Related to Diagn osis Description: 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 \nDiagnosis Code: 375.15 Impression/Plan Related to Diagn osis Description: Open angle with borderline findings and low glaucoma risk in both eyes \nDiagnosis Code: 365.01 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 \nDiagnosis Code: 362.51 Impression/Plan Related to Diagn osis Description: Ptosis of both eyelids \nDiagnosis Code: 374.30 Impression/Plan Related to Diagn osis Description: Chorioretinal scar of right eye \nDiagnosis Code: 363.30 Impression/Plan Related to Diagn osis Description: Age-related nuclear cataract of both eyes \nDiagnosis Code: 366.16 Impression/Plan Related to Diagn osis Description: PVD (posterior vitreous detachment), both eyes \nDiagnosis Code: 379.21 Impression/Plan Related to Diagn osis Description: 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 \nDiagnosis Code: 375.15 Impression/Plan Related to Diagn osis Description: Open angle with borderline findings and low glaucoma risk in both eyes \nDiagnosis Code: 365.01 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 \nDiagnosis Code: 362.51 Impression/Plan Related to Diagn osis Description: Ptosis of both eyelids \nDiagnosis Code: 374.30 Impression/Plan Related to Diagn osis Description: Chorioretinal scar of right eye \nDiagnosis Code: 363.30 Impression/Plan Related to Diagn osis Description: Age-related nuclear cataract of both eyes \nDiagnosis Code: 366.16 Impression/Plan Related to Diagn osis Description: 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 \nDiagnosis Code: 375.15 Impression/Plan Related to Diagn osis Description: PVD (posterior vitreous detachment), both eyes \nDiagnosis Code: 379.21 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 \nDiagnosis Code: 362.51 Impression/Plan Related to Diagn osis Description: Open angle with borderline findings and low glaucoma risk in both eyes \nDiagnosis Code: 365.01 Impression/Plan Related to Diagn osis Description: AGE-RELATED NUCLEAR CATARACT OF BOTH EYES \nDiagnosis Code: 366.16 Impression/Plan Related to Diagn osis Description: Open angle with borderline findings and low glaucoma risk in both eyes \nDiagnosis Code: 365.01 Impression/Plan Related to Diagn osis Description: Ptosis of both eyelids \nDiagnosis Code: 374.30 Impression/Plan Related to Diagn osis Description: 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 \nDiagnosis Code: 375.15 Impression/Plan Related to Diagn osis Description: Open angle glaucoma suspect \nDiagnosis Code: 365.01 Impression/Plan Related to Diagn osis Description: OPEN ANGLE WITH BORDERLINE FINDINGS AND LOW GLAUCOMA RISK IN RIGHT EYE \nDiagnosis Code: 365.01 Impression/Plan Related to Diagn osis Description: NS Cataract, Nuclear Sclerotic OU \nDiagnosis Code: 366.16 Impression/Plan Related to Diagn osis Description: AGE-RELATED NUCLEAR CATARACT OF BOTH EYES \nDiagnosis Code: 366.16 Impression/Plan Related to Diagn osis Description: Open angle glaucoma suspect \nDiagnosis Code: 365.01 Impression/Plan Related to Diagn osis Description: NS Cataract, Nuclear Sclerotic OU \nDiagnosis Code: 366.16 Impression/Plan Related to Diagn osis Description: Open angle glaucoma suspect \nDiagnosis Code: 365.01 Impression/Plan Related to Diagn osis Description: CONJUNCTIVAL HEMORRHAGE OF LEFT EYE \nDiagnosis Code: 372.72 Impression/Plan Related to Diagn osis Description: OPEN ANGLE WITH BORDERLINE FINDINGS AND LOW GLAUCOMA RISK IN RIGHT EYE \nDiagnosis Code: 365.01 Impression/Plan Related to Diagn osis Description: GLAUCOMA, OPEN- ANGLE W/BRDRLN FNDG OD \nDiagnosis Code: 365.01 Impression/Plan Related to Diagn osis Description: INSUFFICIENCY, TEAR FILM NOS OU \nDiagnosis Code: 375.15 Impression/Plan Related to Diagn osis Description: SCAR, CHORIORETINAL NOS OD \nDiagnosis Code: 363.30 Impression/Plan Related to Diagn osis Description: AGE-RELATED NUCLEAR CATARACT OF BOTH EYES \nDiagnosis Code: 366.16 Impression/Plan Related to Diagn osis Description: PVD VITREOUS DEGENERATION OU \nDiagnosis Code: 379.21 Impression/Plan Related to Diagn osis Description: NS CATARACT, NUCLEAR SCLEROTIC OU \nDiagnosis Code: 366.16 Assessments Type Assessment Date No Information Patient Care Teams Name Effective Dates (start - stop) Status Members No Information
--- NOTE | 2025-01-28 13:04 | MHC.OFFVIS ---
Vital Signs 01/28/25 13:08 Height 5 ft 2 in Weight 159 lb BMI 29.1 BP 123/73 Blood Pressure Location Rt brachial Position Sitting Respiration 16 Pulse 65 Pulse Source Pulse Oximeter Pulse Oximetry (%) 96 Oxygen Delivery Method Room Air Intake Visit Reasons: PROCEDURE DISCUSSION Staff Research Associate Required: No Accompanied by: Self / Same As Patient Allergies No Known Allergies Allergy (Verified 01/28/25 13:10) HPI Comments Details: The patient is an 84-year-old female presenting with chronic pain management concerns. She has a history of spinal stenosis, which has been causing significant discomfort and has previously undergone a caudal epidural steroid injection that was notably painful. The patient reports that her has undergone similar procedures without complications, which adds to her concern about her own experience. She was previously offered the procedure with sedation but was not ready to proceed, she would like to schedule that procedure at this time. The patient has been on chronic opioid therapy, which was interrupted for three days, leading to exacerbated pain symptoms due to opioid withdrawal prior to the previous injection which could have impacted her ability to tolerate the procedure. She has been prescribed pregabalin, but there is uncertainty about its efficacy compared to gabapentin, which she previously used. Her primary care physician has taken over the prescription of pregabalin, but the patient expresses a preference for the shipyard painting supervisor to manage her medication dosage. - Pain is associated with spinal stenosis and is described as significant discomfort. - Previous caudal epidural steroid injection was notably painful. - Pain exacerbated by opioid withdrawal after a three-day interruption. - Affect: The patient expresses concern and fear regarding pain management procedures. - Analgesia: Currently using pregabalin, previously used gabapentin, and has been on chronic opioids. - Adverse Effects: Pain exacerbation due to opioid withdrawal. - Activities of Daily Living: Pain management is crucial for maintaining quality of life. - Aberrant Drug Related Behaviors: No specific behaviors noted, but there is a preference for specialist management of medication dosage. [facility] Medical History (Updated 05/14/23 @ 15:26 by Annelise Mann APRN, CERTIFIED PROFESSIONAL MIDWIFE) Edema Spinal stenosis Other chronic pain Chronic kidney disease (CKD), stage III (moderate) Left ovarian cyst Essential (primary) hypertension Social History (Updated 12/03/23 @ 14:01 by Grace Paulino [facility]) Patient Tobacco Use Status: Former Tobacco user Review of Systems Const Details: - Musculoskeletal: Reports significant discomfort due to spinal stenosis. - Neurological: Denies any new neurological deficits. Physical Exam Exam Exam: General: awake, alert, oriented. Answers questions appropriately. Fully engaged in examination. Skin: warm, dry. Covered wound right lares. No signs of systemic infection. No warmth to surrounding skin or lymphangitis. HEENT: Normocephalic. Hearing intact. Cardiac: External chest normal in appearance. Respiratory: No cough, audible wheezing or stridor. Abdomen: without gross distension. MS: No obvious swelling or deformities. Able to transition from sit to stand unassisted. Ambulates with bilaterally normal heel strike and toe off Neurological: Oriented to person, place, time and situation. Thought process intact. Ambulates with use of rollator walker. Psychiatric: Appropriate mood and affect. Good judgment and insight. Vital Signs: Last Vital Signs Pulse 65 01/28/25 13:08 Resp 16 01/28/25 13:08 BP 123/73 01/28/25 13:08 Pulse Ox 96 01/28/25 13:08 Oxygen Delivery Method Room Air 01/28/25 13:08 BMI result Body Mass Index 29.1 Results Reviewed Results Reviewed: MRI 04/2023 Assessment & Plan Assessment & Plan (1) Spinal stenosis: Code(s): M48.00 - Spinal stenosis, site unspecified Category: Medical (2) Neurogenic claudication: Code(s): R29.818 - Other symptoms and signs involving the nervous system Category: Medical Plan The plan includes scheduling a caudal epidural steroid injection with sedation in the operating room to manage the patient's spinal stenosis and associated pain. The patient will need to arrange for transportation post-procedure due to the effects of anesthesia. There is a discussion about the continuation of pregabalin, with consideration for adjusting the dosage based on the patient's response and preference for specialist management. She would like to hold off on medication adjustments until after the injection. Patient was informed and verbally consented to the use of an ambient scribe for clinic note documentation during this visit. Patient Instructions: - Arrange for transportation with your son for the day of the procedure due to anesthesia effects. - Continue taking pregabalin as prescribed and discuss any changes in dosage with your specialist. - Expect a call to schedule your procedure. Coding Level of Care Code Est Pt Level 3 (89236) Complex EM visit Add On G2211 Diagnoses Spinal stenosis M48.00 Neurogenic claudication R29.811
--- OUTSIDE RECORDS SUMMARY | 2025-01-28 13:06 | XMS_ITS | Patient Health Record ---
Author Organization [facility] Address [address] [place] [address] Care Team Providers Care Belt Machine Operator Name Role Phone KALI TREVIZO Unavailable [phone] Lindsay Chelita Unavailable Unavailable Allergies No Known Allergies Reason For Referral No Information Medications Medication SIG (Take, Route, Frequency, Duration) Notes Start Date End Date Status LORazepam Unknown Losartan Potassium U nknown Pantoprazole Sodium Unknown Simvastatin Unknown diazePAM 5 MG 1 tablet as needed Orally one hour prior to procedure; Duration: 1 days 12/02/2022 Not-Taking Bisoprolol-hydroCHLOROthi azide Unknown buPROPion HCl ER (XL) Unknown Diclofenac Unknown Gabapentin Unknown Problems Problem Type SNOMED Code ICD Code Onset Dates Problem Status W/U Status Risk Notes Problem Lumbosacral spondylosis without myelopathy (54368887) Spondylosis without myelopathy or radiculopathy, lumbar region (M47.816) Active confirmed Problem Lumbosacral radiculopathy (4536245) Lumbosacral radiculopathy (M54.17) Active confirmed Problem History of total hip arthroplasty (117327848757) History of total right hip arthroplasty (Z96.641) Active confirmed Plan Of Treatment No Information Insurance Providers Payer Name Payer Address Payer Phone Subscriber Number Group Number Insured Name Patient Relationship to Insured Coverage Start Date Coverage End Date [place] [address] [address] [place], [place] [id number] [phone] [id number] Leidy Dowd Self - patient is the insured 8 [facility] Medicare Supplement [address] [place] [address] [id number] Leidy Dowd Self - patient is the insured 4 Medical (General) History Medical History History ICD Code anxiety CKD II HTN GERD HLD obesity Obstructive sleep apnea pelvic mass trigeminal neuralgia Surgical History Surgery Date(Month/Year) left THR
--- OUTSIDE RECORDS SUMMARY | 2025-01-28 13:06 | XMS_ITS | Encounter Summary ---
Author Organization [facility] Health Address [address] [place] [address] Care Team Providers Care Medical Imaging Director Name Role Phone Unavailable Primary Care Provider Unavailabl e Prior Encounters Date Type Department Care Team Description 01/03/2023 Travel 01/03/2023 1:00 PM EDT Office Visit [facility] [address], [address] [address] Brenda Du, NIKKI Last Filed Vital Signs Vital Sign Reading Time Taken Comments Blood Pressure 143/88 01/03/2023 1:28 PM EDT Pulse 65 01/03/2023 1:28 PM EDT Temperature - - Respiratory Rate - - Oxygen Saturation - - Inhaled Oxygen Concentration - - Weight - - Height - - Body Mass Index - - Plan of Treatment Not on file Procedures Procedure Name Priority Date/Time Associated Diagnosis Comments [facility] CAPTURE AND INTERPRETATION WITH FIELD OF VIEW OF BOTH JAWS; WITH OR WITHOUT CRANIUM Routine 01/03/2023 1:00 PM EDT BITEWING - SINGLE RADIOGRAPHIC IMAGE Routine 01/03/2023 1:00 PM EDT ADDITIONAL X-RAY Routine 01/03/2023 1:00 PM EDT LIMITED ORAL EVALUATION - PROBLEM FOCUSED Routine 01/03/2023 1:00 PM EDT Visit Diagnoses Not on file
--- OUTSIDE RECORDS SUMMARY | 2025-01-28 13:06 | XMS_ITS | Encounter Summary ---
Author Organization [facility] Address [address] [place] [phone] Phone Care Team Providers Care Party Plan Selling Distributor Name Role Phone Cee Rogers A MD Primary Care Provider Cee Rogers A MD Primary Care Provider Encounter Details Date Type Department Care Team (Late st Contact Info) Description 04/18/2023 Procedure Pass [facility], Ct Scan - [facility] [address] [place] [address] Social History Tobacco Use Types Packs/Day Years Used Date Smoking Tobacco: Never Assessed Education Answer Date Recorded Are you interested in more education? Not on tasia e 04/18/2023 Are you concerned about learning? Not on file 04/18/2023 No 04/18/2023 No 04/18/2023 Digital Access Answer Date Recorded No 04/18/2023 No 04/18/2023 Reliable internet access at home? Not on file 04/18/2023 Device with a working camera? Not on file Comments Unknown Sex and Gender Information Value Date Recorded Sex Assigned at Female 12/02/2023 10:01 AM EDT Legal Sex Female 11:36 AM EDT Gender Identity Female 12/02/2023 10:01 AM EDT Sexual Orientation Straight 12/02/2023 10 :01 AM EDT documented as of this encounter Functional Status * Calculated C-SSRS Risk Score (Lifetime/Recent) Answer Date of Assessment Author No Risk Indicated 04/18/2023 11:50 AM EDT Ana Brown RN * [place] Suicide Severity Rating Scale (Screener/Recent Self-Report) Question Answer Date of Assessment Author 1. Wish to be (Past 1 Month) No 023 11:50 AM EDT Ana Brown, BURKE 2. Non-Specific Active Suici roberto Thoughts (Past 1 Month) No 04/18/2023 11:50 AM EDT Nichole Brown, RN 6. Suicidal Behavior (Lifetime) No 11:50 AM EDT Ana Brown, BURKE documented as of this encounter Plan of Treatment Upcoming Encounters Date Type Department Care Team (Late st Contact Info) Description 10/03/2025 1:30 PM EDT Office Visit [facility] [address] [place] [address] Ghassan Luu MD [address] [address] documented as of this encounter Visit Diagnoses Not on filedocumented in this encounter Care Teams Party Plan Selling Distributor Relationship Specialty Start Date End Date Cee Rogers MD [address] [place] [phone] [email or web address] PCP - General Internal Medicine 04/18/23 12/01/23 Cee Rogers MD [address] [place] [phone] [email or web address] PCP - General Internal Medicine 12/02/23 documented as of this encounter Additional Source Comments The information contained in this document represents components of the legal health record. It is not the complete legal health record.[facility]
[2025-01-28 13:08] VITALS: BP 123/73; PULSE 65; RESP 16; O2SAT 96; BMI 29.1
== END 2025-01-28 13:37 | disposition home or self-care (01) ==
LOC: HO.PMC 13:03
PROVIDERS: PCP Internal Medicine; Visit Provider Registered Nurse Emergency
DX: M48.00 Spinal stenosis, site unspecified (principal); R29.818 Other symptoms and signs involving the nervous system
CPT/HCPCS: 99213; G2211

== ENCOUNTER → 2025-01-28 13:03 | Outpatient (BNVA) | payer MEDICARE, SELFPAY | PROVIDERS: PCP Internal Medicine; Visit Provider Registered Nurse Emergency | DX: R29.818 Other symptoms and signs involving the nervous system (principal); M48.00 Spinal stenosis, site unspecified | CPT/HCPCS: 99212 ==

== ENCOUNTER 2025-02-25 11:35 | Day surgery (SDC) | payer MEDICARE, SELFPAY ==
--- OUTSIDE RECORDS SUMMARY | 2022-11-17 20:00 | XMS_ITS | Continuity of Care Document ---
Author Organization [facility] Address [address] [place] [id number] Phone Care Team Providers Care Oyster Shipper Name Role Phone Danitza JOSEPH, Lee Woodward [...] on Encounter [facility], [address] [place], [place], [id number] , [place] tel: [phone] Argos Piper QES Other secondary cataract, bilateralNonexudative age-related macular degeneration, bilateral, intermediate dry stageOpen angle with borderline findings, low risk, bilateral Adolfo-0 [address] [place], [place], [id number] , [place]. tel: [phone] [facility], [facility] [place], [place], [id number] , [place] tel: [phone] Marianna Piper QES Nonexudative age-related macular degeneration, bilateral, early dry stageOpen angle with borderline findings, low risk, bilateral Dec-0 202 2 Newell [address] [place], [address], [place]. tel: [phone] [facility], [address] [place], [place], [id number] , [place] tel:+ Marianna Piper QES Nonexudative age-related macular degeneration, bilateral, early dry stageCataract extraction status, right eyeCataract extraction status, left eyeOpen angle with borderline findings, low risk, bilateral October- 2 Newell Callum[address] [facility], [place], [address], [place]. tel:[phone] [facility], [address], [place], [place], [id number] , [place] tel: Marianna Piper QES Cataract extraction status, left eyeCataract extraction status, right eye October- [address] [place], [id number] , [place]. tel:[phone] [facility], [address] [facility], [place], [place], [id number] , [place] tel:[phone] [facility] Age-related nuclear cataract, left eyeAge-related nuclear cataract, left eye 2 Newell [address], [place], [address], [place]. tel:[phone] [facility], [address] [facility], [place], [place], [id number] , [place] tel:[phone] Marianna Bolden QES Myopia, bilateralCataract extraction status, right eyeRegular astigmatism, right eyeAge-related nuclear cataract, left eye [address] [facility], [place], [place], [id number] , [place]. tel:[phone] [facility], [address], [place], [place], [id number] , [place] tel: Argos Piper QES Cataract extraction status, right eyeAge-related nuclear cataract, left eye October- [address], [place], [place], [id number] , [place]. tel: [phone] [facility], [address] [place], [id number] , [place] tel: [phone] [facility] Age-related nuclear cataract, right eyeAge-related nuclear cataract, right eye - 2 Osiris [address]olen[address] [place], [address], [place]. tel: [phone] [facility], [address] [place], [place], [id number] , [place] tel: [phone] Marianna DAVIS Open angle with borderline findings, [...] nuclear cataract, bilateralCorneal ectasia, bilateralAge-related nuclear cataract, bilateralAge-related nuclear cataract, bilateralVitreous degeneration, bilateralVitreous degeneration, bilateralCorneal ectasia, bilateralVitreous degeneration, bilateralOpen angle with borderline findings, low risk, right eyeUnspecified ptosis of bilateral eyelidsDry eye syndrome of bilateral lacrimal glandsAge-related nuclear cataract, right eyeUnspecified chorioretinal scars, right eye Sep- 2 Osiris [address]um. [address] [place], [address], [place]. tel: [phone] [facility], [address] [place] [address], [id number] , [place] tel: [phone] Marianna Bolden QES Open angle with borderline findings, low risk, bilateralAge-related nuclear cataract, bilateralVitreous degeneration, bilateralNonexudative age-related macular degeneration, bilateral, early dry stagePersonal history of other diseases of the nervous system and sense organs Aug-3 0 2 Danitza [address]ward. [address] [place], [place], [id number] , [place]. tel: [phone] [facility], [address] [place] [address], [id number] , [place] tel: [phone] [facility] Location Age-related nuclear cataract, bilateralVitreous degeneration, bilateralUnspecified ptosis of bilateral eyelidsPersonal history of other diseases of the nervous system and sense organsNonexudative age-related macular degeneration, bilateral, early dry stageOcular pain, right eyeUnspecified chorioretinal scars, right eyeOpen angle with borderline findings, low risk, bilateralDry eye syndrome of bilateral lacrimal glands Aug- 1 [employer] . [address] [place] [address], [address], [place]. tel: [phone] [facility], [address] [place] [address], [id number] , [place] tel: [phone] [facility] Location Unspecified ptosis of bilateral eyelidsDry eye syndrome of bilateral lacrimal glandsNonexudative age-related macular degeneration, bilateral, early dry stagePersonal history of other diseases of the nervous system and sense organsVitreous degeneration, bilateralOpen angle with borderline findings, low risk, bilateralAge-related nuclear cataract, bilateralUnspecified chorioretinal scars, right eyeOcular pain, right eye Apr- 4-201 9 [employer] . [address] [place] [address], [address], . tel: [phone] [facility], [address] [place] [address], [id number] , [place] tel: [phone] [facility] Location Unspecified chorioretinal scars, right eyeAge-related nuclear cataract, bilateralUnspecified ptosis of bilateral eyelidsDry eye syndrome of bilateral lacrimal glandsOpen angle with borderline findings, low risk, bilateralNonexudative age-related macular degeneration, bilateral, early dry stageVitreous degeneration, bilateral 2-201 8 [employer] . [address] [place] [address], [address], [place]. tel: [phone] [facility], [address] [place] [address], [id number] , [place] tel: [phone] [facility] Location Vitreous degeneration, bilateralDry eye syndrome of bilateral lacrimal glandsUnspecified chorioretinal scars, right eyeUnspecified ptosis of bilateral eyelidsNonexudative age-related macular degeneration, bilateral, early dry stageAge-related nuclear cataract, bilateralOpen angle with borderline findings, low risk, bilateral 8-201 7 [employer] . [address] [place] [address], [address], [place]. tel: [phone] [facility], [address] [place] [address], [id number] , [place] tel: [phone] [facility] Dry eye syndrome of bilateral lacrimal glandsOpen angle with borderline findings, low risk, bilateralOpen angle with borderline findings, low risk, unspecified eyeUnspecified ptosis of bilateral eyelidsAge-related nuclear cataract, bilateral Jan- 8-201 6 [employer] . [address] [place] [address], [facility], . tel: [phone] [facility], [address] [place] [address], [id number] , tel: [phone] [facility] Location Open angle with borderline findings, low risk, right eyeAge-related nuclear cataract, right eyeAge-related nuclear cataract, bilateralOpen angle with borderline findings, low risk, unspecified eye Jan-2 0-201 5 [employer] . [address] [place] [address], [facility], . tel: [phone] [facility], [address] [place] [address], [id number] , [facility]: [phone] [facility] Open angle with borderline findings, low risk, unspecified eyeConjunctival hemorrhage, left eyeAge-related nuclear cataract, right eye Oct-0 7-201 4 [employer] . [address] [place] [address], [facility], . tel: [phone] [facility], [address] [place] [address], [id number] , tel: [phone] [facility] Location Chorioretinal Scar UnspecCataract Nuclear ScleroticOpen angle with borderline findings, low risk, right eyeDry Eye SyndromeOpen Angle With Borderline Findings Low RiskAge-related nuclear cataract, bilateralVitreous Detachment Degenerat 1-201 4 [employer] . [address] [place] [address], [facility], . tel: [phone] Family History Family Member Type Diagnosis Age At Onset Problem (finding) Fhx of glaucoma Close relative Problem (finding) No Significant Family History Problem (finding) Fhx of diabetes mellitu s Problem (finding) Fhx of retinal disease Aunt Problem (finding) Fhx of degenerative dis order of macula Payers Payer name Insurance type Covered constitution party ID Authoriza tion(s) No Information Social History [...] [place] revealed cataract. Impression/Plan Related to Refra ctive testing reveals [...]
--- OUTSIDE RECORDS SUMMARY | 2025-02-16 11:30 | XMS_ITS | Encounter Summary ---
Author Organization [facility] Address [address] [place] [phone] Phone Care Team Providers Care Digital Assistant Name Role Phone Cee Rogers MD Primary Care Provider Reason for Visit * Reason Comments Follow-up Sleep Apnea Encounter Details Date Type Department Care Team ([facility] st Contact Info) Description 02/16/2025 11:30 AM EDT Office Visit [facility] [address] [place] [phone] Ghassan Luu MD [address] [place] [phone] Arrived Social History Tobacco Use Types Packs/Day Years Used Date Smoking Tobacco: Former Cigarettes Smokeless Tobacco: Never Alcohol Use Standard Drinks/Week Comments Yes 0 (1 standard drink = 0.6 oz pur e alcohol) Education Answer Date Recorded Are you interested in more education? Not on tasia e 04/18/2023 Are you concerned about learning? Not on file 04/18/2023 No 04/18/2023 No 04/18/2023 Digital Access Answer Date Recorded No 04/18/2023 No 04/18/2023 Reliable internet access at home? Not on file 04/18/2023 Device with a working camera? Not on file Intimate Partner Violence Answer Date R ecorded Are you denied basic needs s uch as food, clothing, or medical care? No 04/22/2024 In the past 12 months have y ou been in a relationship with a person who hurts, threatens, or tries to control you? No 04/22/2024 Are you denied basic needs s uch as food, clothing, or medical care? No 04/22/2024 In the past 12 months have y ou been in a relationship with a person who hurts, threatens, or tries to control you? No 04/22/2024 Comments Unknown Sex and Gender Information Value Date Recorded Sex Assigned at Female 12/02/2023 10:01 AM EDT Legal Sex Female 11:36 AM EDT Gender Identity Female 12/02/2023 10:01 AM EDT Sexual Orientation Straight 12/02/2023 10 :01 AM EDT documented as of this encounter Last Filed Vital Signs Vital Sign Reading Time Taken Comments Blood Pressure 90/58 02/16/2025 11:17 AM EDT 108/67 right arm auto med cuff Pulse 61 02/16/2025 11:17 AM EDT Temperature 36.3 C (97.4 F) 02/16/2025 11:17 AM EDT Respiratory Rate - - Oxygen Saturation 99% 02/16/2025 11: 17 AM EDT Inhaled Oxygen Concentration - - Weight 73.7 kg (162 lb 6.4 oz) 02/16/2025 11:17 AM EDT Height 157.5 cm (5' 2 ) 02/16/2025 11:1 7 AM EDT Body Mass Index 29.7 02/16/2025 11:17 AM EDT documented in this encounter Plan of Treatment Upcoming Encounters Date Type Department Care Team (Late st Contact Info) Description 10/03/2025 1:30 PM EDT Office Visit [facility] [address] [facility] [place] [address] Ghassan Luu MD 10 [facility] [address]nd [place] [address] documented as of this encounter Visit Diagnoses Not on filedocumented in this encounter Care Teams Digital Assistant Relationship Specialty Start Date End Date Cee Rogers MD [address] [place] [address] [email or web address] [email or web address] - General Internal Medicine 12/02/23 documented as of this encounter Additional Source Comments The information contained in this document represents components of the legal health record. It is not the complete legal health record.[facility]
--- OUTSIDE RECORDS SUMMARY | 2025-02-16 11:40 | XMS_ITS | Clinical Summary ---
Author Organization [facility] Address [address] [place] [phone] Phone Care Team Providers Care Insurance Manager Name Role Phone Simi Rogers MD Primary Care Provider Allergies No known active allergies Medications buPROPion (WELLBUTRIN XL) 300 MG ER 24 hr tablet Take 300 mg by mouth daily. Active gabapentin (NEURONTIN) 100 MG capsule Take 100 mg by mouth 2 (two) times a day. Active oxyCODONE-aceta minophen (PERCOCET) 5-325 mg per tablet Take 1 tablet by mouth every 6 (six) hours as needed for pain (specific location in comments). For severe pain Active simvastatin (ZOCOR) 40 MG tablet Take 40 mg by mouth nightly at bedtime. 12/06/2022 Active LORazepam (ATIVAN) 0.5 MG tablet Take 0.5 mg by mouth nightly at bedtime. 03/31/2023 Active metoprolol tartrate (LOPRESSOR) 25 MG tablet Take 25 mg by mouth 2 (two) times a day. 05/22/2023 Active pregabalin (LYRICA) 50 MG capsule Take 50 mg by mouth 2 (two) times a day. 03/20/2024 Active furosemide (LASIX) 20 MG tablet Take 20 mg by mouth daily. 05/22/2023 Active pantoprazole (PROTONIX) 40 MG tablet Take 40 mg by mouth. 02/05/2023 Active cephalexin (KEFLEX) 500 MG capsule 01/25/2025 Active acetaminophen (TYLENOL) 500 MG tablet Take 1,000 mg by mouth nightly at bedtime. 11/19/2024 Active cholecalciferol , vitamin D3, 25 mcg (1,000 unit) capsule Take 1 capsule by mouth every morning. 11/19/2024 Active diclofenac potassium (CATAFLAM) 50 MG tablet 01/25/2025 Active oxyCODONE-aceta minophen (PERCOCET) 10-325 mg per tablet 02/02/2025 Active Active Problems No known active problems Encounters Date Type Department Care Team Description 02/16/2025 11:30 AM EDT Office Visit [facility] [address] [place] [address] Ghassan Luu MD Arrived 01/19/2025 Telephone [facility] [address] [place] [address] [place]abbie V[place]OT, [place] 01/05/2025 Telephone [facility] [address] [place] [address] Ghassan Luu MD Sleep Study; DME 01/04/2025 11:30 AM EDT Office Visit [facility] [address] [place] [address] Ghassan Luu MD Obstructive sleep apnea (Primary Dx) 12/14/2024 Telephone [facility] [address] [place] [address] Ghassan Luu MD DME (Need CPAP DME supply company name) from Last 3 Months Social History Tobacco Use Types Packs/Day Years Used Date Smoking Tobacco: Former Cigarettes Smokeless Tobacco: Never Tobacco Cessation:Counseling Given: Not Answered Alcohol Use Standard Drinks/Week Comments Yes 0 [...] Orientation Straight 12/02/2023 10 :01 AM EDT Last Filed Vital Signs Vital Sign Reading Time Taken Comments Blood Pressure 90/58 02/16/2025 11:17 AM EDT 108/67 right arm auto med cuff Pulse 61 02/16/2025 11:17 AM EDT Temperature 36.3 C (97.4 F) 02/16/2025 11:17 AM EDT Respiratory Rate 16 04/22/2024 4:40 PM EST Oxygen Saturation 99% 02/16/2025 11: 17 AM EDT Inhaled Oxygen Concentration - - Weight 73.7 kg (162 lb 6.4 oz) 02/16/2025 11:17 AM EDT Height 157.5 cm (5' 2 ) 02/16/2025 11:1 7 AM EDT Body Mass Index 29.7 02/16/2025 11:17 AM EDT Plan of Treatment Upcoming Encounters Date Type Department Care Team (Late st Contact Info) Description 10/03/2025 1:30 PM EDT Office Visit [facility] [address] [place] [address] [place] [address] Ghassan Luu MD [address] [place] [phone] Health Maintenance Due Date Last Done Comments DEPRESSION SCREENING 1954 ZOSTER VACCINES (1 of 2) 1992 OSTEOPOROSIS SCREENING INITI AL (ONE-TIME) 09/28/2007 PNEUMOCOCCAL VACCINES (50+ y ears) (2 of 2 - PCV) 11/17/2008 11/18/2007 Adult Td,Tdap Booster 09/26/2015 09/25/2005 RSV VACCINE (1 - 1-dose 75+ series) 2017 INFLUENZA VACCINE (#1) 2025 COVID-19 VACCINE (1 - 2023-2 5 season) 2025 HEPATITIS A VACCINES Aged Out No long er eligible based on patient's age to complete this topic HIB VACCINES Aged Out No longer eligi ble based on patient's age to complete this topic MENINGOCOCCAL VACCINES (ACWY) Aged Out No longer eligible based on patient's age to complete this topic MENINGOCOCCAL VACCINES (B) Aged Out N o longer eligible based on patient's age to complete this topic Medical Devices Not on file Insurance [facility] MEDICARE SUPPLEMENT MEDICARE PART A & B MEDICARE SUPPLEMENT MEDICARE PART A & B MEDICARE SUPPLEMENT MEDICARE PART A & B MEDICARE PART A & B MEDICARE PART A & B MEDICARE SUPPLEMENT MEDICARE PART A & B Advance Directives For more information, please contact: [phone] (9AM - 5PM [facility], Friday-Friday) Documents on File Type Date Recorded Patient Upholstery Repairer Expl anation Healthcare Proxy 04/23/2024 12:51 PM Durable Power of Label Stitcher 04/23/2024 12:48 PM Care Teams Insurance Manager Relationship Specialty Start Date End Date Simi Rogers MD [address] [place] [phone] [email or web address] PCP - General Internal Medicine 12/02/23 Additional Source Comments The information contained in this document represents components of the legal health record. It is not the complete legal health record.[facility]
--- OUTSIDE RECORDS SUMMARY | 2025-02-16 11:40 | XMS_ITS | Clinical Summary ---
Author Organization [facility] Health Address [address] [place] [address] Care Team Providers Care Cabinet Finisher Name Role Phone Unavailable Primary Care Provider Unavailabl e Medications amoxicillin (AMOXIL) 500 mg tablet 3 Active bisoproloL-hydr ochlorothiazide (ZIAC) 2.5-6.25 mg tablet 3 Active buPROPion XL (WELLBUTRIN XL) 300 mg 24 hr tablet 3 Active diazePAM (VALIUM) 5 mg tablet TAKE 1 TABLET BY MOUTH NEEDED 1 HOUR PRIOR TO PROCEDURE FOR 1 DAY 3 Active fluticasone propionate (FLONASE) 50 mcg/actuation nasal spray 3 Active gabapentin (NEURONTIN) 100 mg capsule 3 Active LORazepam (ATIVAN) 1 mg tablet 3 Active losartan (COZAAR) 50 mg tablet 3 Active methylPREDNISol one (MEDROL DOSPAK) 4 mg tablet TAKE BY MOUTH DIRECTED ON INSIDE OF PACKAGE 3 Active pantoprazole (PROTONIX) 40 mg EC tablet 3 Active simvastatin (ZOCOR) 40 mg tablet 3 Active Active Problems Problem Noted Date Diagnosed Date Sleep apnea 01/03/2023 Social History Tobacco Use Types Packs/Day Years Used Date Smoking Tobacco: Never Smokeless Tobacco: Never Tobacco Cessation:Counseling Given: Not Answered Alcohol Use Standard Drinks/Week Comments Never 0 (1 standard drink = 0.6 oz pur e alcohol) Comments Unknown Sex and Gender Information Value Date Recorded Sex Assigned at Not on file Legal Sex Female 10:01 AM PDT Gender Identity Not on file Sexual Orientation Not on file Last Filed Vital Signs Vital Sign Reading Time Taken Comments Blood Pressure 143/88 01/03/2023 1:28 PM EDT Pulse 65 01/03/2023 1:28 PM EDT Temperature - - Respiratory Rate - - Oxygen Saturation - - Inhaled Oxygen Concentration - - Weight - - Height - - Body Mass Index - - Plan of Treatment Health Maintenance Due Date Last Done Comments Dental Oral Exam 1942 Dental Prophylaxis 1942 Dental X-Ray: Bitewings 1942 Dental X-Ray: Full Mouth 1942 Dental CBCT 01/03/2026 01/03/2023 Dental X-Ray: Panoramic 01/04/2026 01/03/2023 Procedures Procedure Name Priority Date/Time Associated Diagnosis Comments CONE BEAM CT CAPTURE AND INTERPRETATION WITH FIELD OF VIEW OF BOTH JAWS; WITH OR WITHOUT CRANIUM Routine 01/03/2023 1:00 PM EDT from Last 3 Months or Most Recently Relevant to Health Maintenance
--- OUTSIDE RECORDS SUMMARY | 2025-02-16 11:40 | XMS_ITS | Encounter Summary ---
Author Organization [facility] Health Address [address] [place] [address] Care Team Providers Care Printed Circuit Board Layout Designer Name Role Phone Unavailable Primary Care Provider Unavailabl e Prior Encounters Date Type Department Care Team Description 01/03/2023 Travel 01/03/2023 1:00 PM EDT Office Visit [facility] [address], [address] [address] Brenda Du, NIKKI Last Filed [...]
--- OUTSIDE RECORDS SUMMARY | 2025-02-16 11:40 | XMS_ITS | Patient Health Record ---
Author Organization [facility] Address [address] [place] [address] Care Team Providers Care Payable Manager Name Role Phone KALI TREVIZO Unavailable [phone] Yassinenicolasa Chelita Unavailable Unavailable Allergies No Known Allergies [...] Problem Status W/U Status Risk Notes Problem Spondylosis without myelopathy or radiculopathy, lumbar region (M47.816) Active confirmed Problem Lumbosacral radiculopathy (8769827) Lumbosacral radiculopathy (M54.17) Active confirmed Problem History of total hip arthroplasty (463039588839) History of total right hip arthroplasty (Z96.641) Active confirmed Plan Of Treatment No Information Insurance Providers Payer Name Payer Address Payer Phone Subscriber Number Group Number Insured Name Patient Relationship to Insured Coverage Start Date Coverage End Date [place] [address] [address] [place], [place] [id number] [phone] [id number] Nile Leidy Self - patient is the insured 8 [facility] Medicare Supplement [address] [place] [address] [id number] Nile Leidy Self - patient is the insured 4 Medical (General) History Medical History History ICD Code anxiety CKD II HTN GERD HLD obesity Obstructive sleep apnea pelvic mass trigeminal neuralgia Surgical History Surgery Date(Month/Year) left THR
--- OUTSIDE RECORDS SUMMARY | 2025-02-16 11:40 | XMS_ITS | Encounter Summary ---
Author Organization [facility] Address [address] [place] [phone] Phone Care Team Providers Care Sign Builder Name Role Phone Cee Rogers A MD Primary Care Provider Cee Rogers A MD Primary Care Provider Encounter Details Date Type Department Care Team (Late st Contact Info) Description 09/09/2023 Transcribe Orders [facility] [address] [place] [address] Tita Morrissey, SAJI [address] [place] [address] Urinary tract infection without hematuria, site unspecified (Primary Dx); Urinary incontinence, unspecified type; Fatigue, unspecified type; Spontaneous ecchymoses; Nonspecific abnormal results of liver function study Social History Tobacco Use Types Packs/Day Years [...] AM EDT documented as of this encounter Plan of Treatment Upcoming Encounters Date Type Department Care Team (Late st Contact Info) Description 10/03/2025 1:30 PM EDT Office Visit [facility] [address] [place] [address] Ghassan Luu MD 10 [facility] 2nd [place] [address] [email or web address] documented as of this encounter Visit Diagnoses Diagnosis Urinary tract infection without hematuria, site unspecified- Primary Urinary incontinence, unspecified type Fatigue, unspecified type Spontaneous ecchymoses Nonspecific abnormal results of liver function study documented in this encounter Care Teams Sign Builder Relationship Specialty Start Date End Date Cee Rogers MD [address] [place] [phone] [email or web address] PCP - General Internal Medicine 04/18/23 12/01/23 Cee Rogers MD [address] [place] [phone] [email or web address] PCP - General Internal Medicine 12/02/23 documented as of this encounter Additional Source Comments The information contained in this document represents components of the legal health record. It is not the complete legal health record.[facility]
--- OUTSIDE RECORDS SUMMARY | 2025-02-16 11:40 | XMS_ITS | Encounter Summary ---
Author Organization [facility] Address [address] [place] [phone] Phone Care Team Providers Care Heel Sander Rubber Name Role Phone Cee Rogers A MD Primary Care Provider Cee Rogers A MD Primary Care Provider Encounter Details Date Type Department Care Team (Late st Contact Info) Description 04/18/2023 Procedure Pass [facility], Ct Scan - [facility] [address] [place] [address] Social History Tobacco Use Types Packs/Day Years [...] 11:50 AM EDT Ana Brown RN * Baxter Suicide Severity Rating Scale (Screener/Recent Self-Report) Question [...] Pulmonary, Allergy and Critical Care Medicine [address] [place] [address] Ghassan Luu MD [address] [address] documented as of this encounter Visit Diagnoses Not on filedocumented in this encounter Care Teams Heel Sander Rubber Relationship Specialty Start Date End Date Cee Rogers MD [address] [place] [phone] [email or web address] PCP - General Internal Medicine 04/18/23 12/01/23 Cee Rogers MD [address] [place] [phone] [email or web address] PCP - General Internal Medicine 12/02/23 documented as of this encounter Additional Source Comments The information contained in this document represents components of the legal health record. It is not the complete legal health record.[facility]
[2025-02-23 13:34] VITALS: BMI 29.1
--- NOTE | 2025-02-23 14:26 | HO.ANESPROP2 ---
Documented by User: Janet Chance NP 02/23/25 14:26 HPI - Anesthesia Eval Consult details Narrative: 84 yr old female for Caudal Epidural Steroid Injection PMFSH Active Problems Active Problems: All Active Problems (Updated 05/14/23 @ 15:26 by Annelise Mann, AIRCRAFT DESIGNER, RN TRAVELING) Lumbar radiculopathy (Acute) Neurogenic claudication (Acute) Spinal stenosis (Acute) Past Medical History Medical History Edema Spinal stenosis Other chronic pain Chronic kidney disease (CKD), stage III (moderate) Left ovarian cyst Essential (primary) hypertension Social History Social History Patient Tobacco Use Status: Former Tobacco user Advance Directives: No Advance Directives Information Provided: Yes Meds Allergies Allergy/AdvReac Type Severity Reaction Status Date / Time No Known Allergies Allergy Verified 01/28/25 13:10 Home Medications ?Medication ?Instructions ?Recorded ?Confirmed ?Last Taken ?Type acetaminophen 500 mg tablet 500 mg PO Q6H PRN 05/14/23 Unknown History (Acetaminophen Pain Relief) bupropion HCl 300 mg 24 hr tablet, 300 mg PO QAM 05/14/23 Unknown History extended release (Wellbutrin XL) cholecalciferol (vitamin D3) 25 25 mcg PO DAILY 05/14/23 Unknown History mcg (1,000 unit) capsule furosemide 20 mg tablet (Lasix) 20 mg PO DAILY 05/14/23 Unknown History lorazepam 0.5 mg tablet 0.5 mg PO BEDTIME PRN 05/14/23 Unknown History oxycodone-acetaminophen 10 mg-325 2 tab PO Q6H PRN 05/14/23 Unknown History mg tablet pantoprazole 40 mg granules 40 mg PO DAILY 05/14/23 Unknown History delayed-release for susp in packet (Protonix) sennosides 8.6 mg tablet (Natural 8.6 mg PO DAILY 05/14/23 Unknown History Senna Laxative) simvastatin 40 mg tablet 40 mg PO BEDTIME 05/14/23 Unknown History vitamins A,C,H-fynf-tyzvgk 4,296 1 cap PO BID 05/14/23 Unknown History mcg-226 mg-90 mg capsule (PreserVision AREDS) metoprolol tartrate 25 mg tablet 25 mg PO DAILY 12/03/23 Unknown History Exam Height,Weight and Vital Signs: Height 5 ft 2 in Weight 72.121 kg Documented by User: Lou Quinones MD 02/25/25 11:44 [facility] Past Medical History Medical History Edema Spinal stenosis Other chronic pain Chronic kidney disease (CKD), stage III (moderate) Left ovarian cyst Essential (primary) hypertension Family History Family history of problems with anesthesia: No Surgical History History of Problems with Anesthesia: No Social History Social History Patient Tobacco Use Status: Former Tobacco user Advance Directives: No Advance Directives Information Provided: Yes Meds Allergies Allergy/AdvReac Type Severity Reaction Status Date / Time No Known Allergies Allergy Verified 01/28/25 13:10 Home Medications ?Medication ?Instructions ?Recorded ?Confirmed ?Last Taken ?Type acetaminophen 500 mg tablet 500 mg PO Q6H PRN 05/14/23 Unknown History (Acetaminophen Pain Relief) bupropion HCl 300 mg 24 hr tablet, 300 mg PO QAM 05/14/23 Unknown History extended release (Wellbutrin XL) cholecalciferol (vitamin D3) 25 25 mcg PO DAILY 05/14/23 Unknown History mcg (1,000 unit) capsule furosemide 20 mg tablet (Lasix) 20 mg PO DAILY 05/14/23 Unknown History lorazepam 0.5 mg tablet 0.5 mg PO BEDTIME PRN 05/14/23 Unknown History oxycodone-acetaminophen 10 mg-325 2 tab PO Q6H PRN 05/14/23 Unknown History mg tablet pantoprazole 40 mg granules 40 mg PO DAILY 05/14/23 Unknown History delayed-release for susp in packet (Protonix) sennosides 8.6 mg tablet (Natural 8.6 mg PO DAILY 05/14/23 Unknown History Senna Laxative) simvastatin 40 mg tablet 40 mg PO BEDTIME 05/14/23 Unknown History vitamins A,C,V-zcwo-kmsiue 4,296 1 cap PO BID 05/14/23 Unknown History mcg-226 mg-90 mg capsule (PreserVision AREDS) metoprolol tartrate 25 mg tablet 25 mg PO DAILY 12/03/23 Unknown History Exam Airway Mallampati Class: II TM Dist: <=3cm Neck ROM: Limited Heart: rrr Lungs: cta Assessment and Plan Assessment Anesthesia Assessment: Anesthesia Plan Discussed and Chart Reviewed Final Anesthetic Review Family History of Problems with Anesthesia: No History of Problems with Anesthesia: No NPO: Yes ASA Class: III Final Preanesthetic Review: No Changes in Pt Med Stat, Meds/Allgs Chart Reviewed, Consent Obtained/Reviewed and Anes Risks/Benef Reviewed Patient Risk: Intermediate Procedure Risk: Low Anesthetic Plan Anesthetic Plan: MAC: and Agree w/ Assess. and Plan Disposition: Standard PACU
--- NOTE | ~2025-02-25 | FL_ITS ---
EXAMINATION: FL GUIDANCE ONLY HISTORY: Caudal Epidural Steroid Injection COMPARISON: None available. TECHNIQUE: Fluoroscopy time: 17.7 seconds. Cumulative Dose: 6.7792 mGy. DAP: 2.5205 mGym2 Images: 2. FINDINGS: Fluoroscopic spot films of the sacrum demonstrate a needle in place. FL/FL guidance in OR IMPRESSION: Fluoroscopy during procedure. Please see procedure report for additional information. Electronically signed by: Orion Castro MD 02/25/2025 01:01 PM EDT
--- NOTE | 2025-02-25 11:56 | MHC.SHP ---
Pre-Procedural Eval Section A - 24 Hr Update-Section A only Date of Service: 02/25/25 The patient is an INPATIENT: No Changes since office visit: Yes Patient answered all questions The patient has been examined within 24 hours of the surgical procedure. The History & Physical has been completed within 30 days and I have reviewed it.: No Section B - Complete if H&P > 30 days Chief Complaint: Spinal stenosis, site unspecified Details of Present Illness: As above plus radiculopathy lumbosacral Relevant Family History (Specify if Yes): No Relevant Social History: None Present Medications: None Medical History: No relevant PMH History of Previous Operations: No relevant previous surgery Allergies: Allergies Allergy/AdvReac Type Severity Reaction Status Date / Time No Known Allergies Allergy Verified 02/25/25 11:53 Review of Systems Sugical H&P ROS: Negative: Constitution, Cardiovascular, Respiratory, Neurological, Psychiatric, Hem-Onc, Allergic/Immunologic, Gastrointestinal, Genitourinary, Musculoskeletal, Integumentary, Endocrine and Eyes/Ears/Nose/Throat Exam Surgical H&P Exam: Normal: HEENT, Normal: Heart, Normal: Lungs, Normal: Extremities, Normal: Abdomen, Normal: Skin and Normal: Neurological Plan Diagnosis/Plan: Unchanged I have reviewed the history and physical and performed a pertinent physical examination on my patient. No changes have occurred unless specified. Time Spent With Patient Time: Total time managing care of this patient today ____ minutes.
[2025-02-25 11:57] VITALS: BP 152/59; PULSE 71; RESP 16; TEMP 36.7; O2SAT 96; BMI 29.8
[2025-02-25] MEDS: Lactated Ringers 1,000 ML 100 ML IVCONT (12:04)
--- NOTE | 2025-02-25 12:37 | P.OP_ITS ---
Operative Note Operative Note Date of Service: 02/25/25 Narrative: Caudal epidural steroid injection with catheter. Leidy is pleasant 84 years old female who came today to the operating room to receive caudal epidural injection with catheter to treat radiculopathy lumbar. Informed consent was thoroughly explained to the patient risks and benefits were explained. The patient was taken to the operating room and he was positioned prone on operating table, [place] [employer] monitors were applied. Patient was moderately sedated. After that the lower back entire buttocks and intergluteal crease were prepped with ChloraPrep and draped with sterile self adhesive utility towels. C-arm was brought over the operating field and sq picture of the sacral bone and caudal spine were demonstrated on the screen. Lateral view was obtained demonstrating the sacral hiatus. 3 cm below the level of sacral hiatus injection of the lidocaine was performed into intragluteal crease skin. After that 18 gauge 10 cm epidural needle was inserted through the skin and advanced into the sacral hiatus and caudal canal under intermittent anterior posterior and lateral views. When tip of the needle entered the epidural space Isovue M contrast was injected into the needle demonstrating epidural spread of the contrast. After that 22 gauge epidural catheter was inserted into the needle advanced past 20 cm length of the catheter. Contrast was injected into the epidural catheter demonstrating S1 vertebra spread of the contrast. After that 30 cc of preservative-free normal saline was injected into the catheter spreading epidural adhesions. After that treatment solution of lidocaine 2% preservative- free mixed with Kenalog 40 mg was injected into the catheter. Upon completion of the injection needle and the catheter were removed EN mass and sterile dressing n was applied to the site of the needle stick.
--- NOTE | 2025-02-25 12:39 | PM.OP ---
Brief Operative Note Date of Service: 02/25/25 Pre-op diagnosis: Radiculopathy lumbosacral Post-op diagnosis: same Procedure: Caudal epidural steroid injection with catheter. Surgeon: Tomi Moore MD Anesthesia: MAC Was an Oceanology Teacher used for this Procedure?: No Estimated blood loss (mL): 0 Condition: stable Disposition: PACU
[2025-02-25 12:42] VITALS: BP 136/59; PULSE 71; RESP 18; TEMP 36.1; O2SAT 100
[2025-02-25 12:45] VITALS: BP 128/56; PULSE 69; RESP 18; O2SAT 100
[2025-02-25 13:00] VITALS: BP 143/65; PULSE 67; RESP 18; O2SAT 100
== END 2025-02-25 13:30 | disposition home or self-care (01) ==
PROVIDERS: PCP Internal Medicine; Visit Provider Anesthesiology
PROC: 3E0R3GC Introduction of Other Therapeutic Substance into Spinal Canal, Percutaneous Approach (ICD-10-PCS; CPT 62322; principal; 2025-02-25 13:10)
DX: M48.00 Spinal stenosis, site unspecified (principal); G89.29 Other chronic pain; M54.16 Radiculopathy, lumbar region; I12.9 Hypertensive chronic kidney disease with stage 1 through stage 4 chronic kidney disease, or unspecified chronic kidney disease; N18.30 Chronic kidney disease, stage 3 unspecified; Z79.891 Long term (current) use of opiate analgesic; Z87.891 Personal history of nicotine dependence
CPT/HCPCS: 62323; J2003; J2704; J3010; J3301; Q9967

== ENCOUNTER → 2025-02-25 11:35 | Outpatient (BNV) | payer MEDICARE, SELFPAY | PROVIDERS: PCP Internal Medicine; Visit Provider Anesthesiology | DX: M54.17 Radiculopathy, lumbosacral region (principal) | CPT/HCPCS: 62323 ==

== ENCOUNTER 2025-04-01 13:24 | Outpatient (AMB) | payer MEDICARE, SELFPAY ==
--- OUTSIDE RECORDS SUMMARY | 2022-11-17 20:00 | XMS_ITS | Continuity of Care Document ---
Author Organization [facility] Address [address] [place] [phone] Phone Care Team Providers Care Wireless Construction Manager Name Role Phone Danitza JOSEPH, Lee Woodward [...] on Encounter [facility], [address] [place], [place], [id number] , [place] tel: [phone] [address] Other secondary cataract, bilateralNonexudative age-related macular degeneration, bilateral, intermediate dry stageOpen angle with borderline findings, low risk, bilateral Adolfo-0 5-[address] [place], [place], [id number] , [place]. tel: [phone] [facility], [facility] [place], [place], [id number] , [place] tel: [phone] [place] [address] [facility] Nonexudative age-related macular degeneration, bilateral, early dry stageOpen angle with borderline findings, low risk, bilateral Dec-0 6-202 2 Newell Callum. [address] [place], [address], [place]. tel: [phone] [facility], [facility] [place], [place], [id number] , [place] tel: [phone] [address] Nonexudative age-related macular degeneration, bilateral, early dry stageCataract extraction status, right eyeOpen angle with borderline findings, low risk, bilateralCataract extraction status, left eye May- 2 Newell Callum. [address] [place], [address], [place]. tel: [phone] [facility], [address] [facility], [place], [place], [id number] , [place] tel:[phone] Cataract extraction status, left eyeCataract extraction status, right eye October- [address] [place], [place], [id number] , [place]. tel: [phone] [facility], [address], [place], [place], [id number] , [place] tel: [phone] [facility] Age-related nuclear cataract, left eyeAge-related nuclear cataract, left eye October- 2 Newell Callum. [address] [place], [address], [place]. tel: [phone] [facility], [address], [place], [place], [id number] , [place] tel:[phone] Myopia, bilateralCataract extraction status, right eyeRegular astigmatism, right eyeAge-related nuclear cataract, left eye October- [address], [place], [place], [id number] , [place]. tel: [phone] [facility], [address], [place], [place], [id number] , [place] tel:[phone] Cataract extraction status, right eyeAge-related nuclear cataract, left eye May-0 [address], [place], [place], [id number] , [place]. tel:[phone] [facility], [address], [place] , [place], [id number] , [place] tel: [phone] [facility] Age-related nuclear cataract, right eyeAge-related nuclear cataract, right eye 2-202 2 Osiris Nolen. [address] [place], [address], [place]. tel: [phone] [facility], [address] [place], [place], [id number] , [place] tel: [phone] Marianna Sinha Piper [facility] Open angle with borderline findings, low risk, [...] bilateralAge-related nuclear cataract, right eye Sep- 2 Newellwaqas Nolen. [address] [place], [address], [place]. tel: [phone] [facility], [address] [place] [address], [id number] , [place] tel: [phone] [place] [address] [facility] Open angle with borderline findings, low risk, bilateralAge-related nuclear cataract, bilateralVitreous degeneration, bilateralNonexudative age-related macular degeneration, bilateral, early dry stagePersonal history of other diseases of the nervous system and sense organs Aug-3 2 Danitza Woodward. [address] [place], [place], [id number] , [place]. tel: [phone] [facility], [address] [place] [address], [id number] , [place] tel: [phone] [facility] Location Age-related nuclear cataract, bilateralVitreous degeneration, bilateralUnspecified ptosis of bilateral eyelidsPersonal history of other diseases of the nervous system and sense organsNonexudative age-related macular degeneration, bilateral, early dry stageOcular pain, right eyeUnspecified chorioretinal scars, right eyeOpen angle with borderline findings, low risk, bilateralDry eye syndrome of bilateral lacrimal glands Aug-2 9-202 1 [employer] . [address] [place] [address], [address], [place]. tel: [phone] [facility], [address] [place] [address], [id number] , [place] tel: [phone] [facility] Location Unspecified ptosis of bilateral eyelidsDry eye syndrome of bilateral lacrimal glandsNonexudative age-related macular degeneration, bilateral, early dry stagePersonal history of other diseases of the nervous system and sense organsVitreous degeneration, bilateralOpen angle with borderline findings, low risk, bilateralAge-related nuclear cataract, bilateralOcular pain, right eyeUnspecified chorioretinal scars, right eye 4-201 9 [employer] . [address] [place] [address], [address], [place]. tel: [phone] [facility], [address] [place] [address], [id number] , [place] tel: [phone] [facility] Location Unspecified chorioretinal scars, right eyeAge-related nuclear cataract, bilateralUnspecified ptosis of bilateral eyelidsDry eye syndrome of bilateral lacrimal glandsOpen angle with borderline findings, low risk, bilateralVitreous degeneration, bilateralNonexudative age-related macular degeneration, bilateral, early dry stage 2201 8 [employer] . [address] [place] [address], [address], [place]. tel: [phone] [facility], [address] [place] [address], [id number] , [place] tel: [phone] [facility] Vitreous degeneration, bilateralDry eye syndrome of bilateral lacrimal glandsUnspecified chorioretinal scars, right eyeUnspecified ptosis of bilateral eyelidsOpen angle with borderline findings, low risk, bilateralNonexudative age-related macular degeneration, bilateral, early dry stageAge-related nuclear cataract, bilateral 8-201 7 [employer] . [address] [place] [address], [address], [place]. tel: [phone] [facility], [address] [place] [address], [id number] , [place] tel: [phone] [facility] Location Dry eye syndrome of bilateral lacrimal glandsOpen angle with borderline findings, low risk, bilateralOpen angle with borderline findings, low risk, unspecified eyeUnspecified ptosis of bilateral eyelidsAge-related nuclear cataract, bilateral Jan-1 8-201 6 [employer] . [address] [place] [address], [facility], . tel: [phone] [facility], [address] [place] [address], [address] [place] [address] , [place] tel: [phone] [facility] Location Open angle with borderline findings, low risk, right eyeAge-related nuclear cataract, right eyeAge-related nuclear cataract, bilateralOpen angle with borderline findings, low risk, unspecified eye Jan-2 0-201 5 [employer] . [address] [place] [address], [facility], . tel: [phone] [facility], [address] [place] [address], [address] [place] [address] , tel: [phone] [facility] Open angle with borderline findings, low risk, unspecified eyeConjunctival hemorrhage, left eyeAge-related nuclear cataract, right eye Oct-0 7-201 4 [employer] . [address] [place] [address], [facility], . tel: [phone] [facility], [address] [place] [address], [address] [place] [address] , [place] tel: [phone] [facility] Location Chorioretinal Scar UnspecCataract Nuclear ScleroticOpen angle with borderline findings, low risk, right eyeDry Eye SyndromeOpen Angle With Borderline Findings Low RiskAge-related nuclear cataract, bilateralVitreous Detachment Degenerat 1-201 4 [employer] . [address] [place] [address], [facility], . tel: [phone] Family History Family Member Type Diagnosis Age At Onset Problem (finding) Fhx of glaucoma Close relative Problem (finding) No Significant Family History Problem (finding) Fhx of diabetes mellitu s Problem (finding) Fhx of retinal disease Aunt Problem (finding) Fhx of degenerative dis order of macula Payers Payer name Insurance type Covered alliance party ID Authoriza tion(s) No Information Social [...] No Information Instructions Date Instruction Additional Infor vandana Impression/Plan Related to [place] revealed posterior [...] 362.51 Impression/Plan Related to Diagn osis Description: PVD (posterior vitreous detachment), both eyes \nDiagnosis Code: 379.21 Impression/Plan Related to Diagn osis Description: 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 \nDiagnosis Code: 375.15 Impression/Plan Related to Diagn osis Description: Age-related nuclear cataract of both eyes \nDiagnosis Code: 366.16 Impression/Plan Related to Diagn osis Description: Chorioretinal scar of right eye \nDiagnosis Code: 363.30 Impression/Plan Related to Diagn osis Description: Ptosis [...]
--- NOTE | 2025-04-01 13:30 | MHC.OFFVIS ---
Vital Signs 04/01/25 13:31 Height 5 ft 2 in Weight 160 lb BMI 29.3 BP 122/60 Blood Pressure Location Lt brachial Position Sitting Respiration 16 Pulse 72 Pulse Source Pulse Oximeter Pulse Oximetry (%) 97 Oxygen Delivery Method Room Air Intake Visit Reasons: S/p Caudal MADDISON w/ Catheter 02/25/25 Campus Administrative Assistant Required: No Accompanied by: Self / Same As Patient Allergies No Known Allergies Allergy (Verified 04/01/25 13:30) HPI Comments Details: The patient is an 84-year-old female presenting 1 month status post caudal epidural steroid injection. Pain today is 6/10. She endorses improvement in back pain, function and mobility since the injection. She reports the numbness in her leg remains though she is not interested in neurosurgical evaluation despite finding this most bothersome. The patient experienced a fall on Friday, resulting in bruising of the buttocks, which has exacerbated her pain. Prior to the fall, the patient's pain was more tolerable, although it did not completely resolve with previous injections. - Onset and Timing: Chronic numbness in the leg, worsening over time. - Quality and Character: Described as a sensation similar to having a ball at the bottom of the foot. - Primary Location: Leg, with specific mention of the bottom of the foot. - Exacerbating Factors: Fall resulting in bruising of the buttocks. - Relieving Factors: Injections and prednisone provided some relief. - Affect: The patient expresses concern about the persistent numbness and its impact on her quality of life. - Analgesia: Currently using pregabalin and Percocet, with a request to increase the dosage of pregabalin. - Adverse Effects: No specific adverse effects from medications were discussed. - Activities of Daily Living: The numbness and pain interfere with daily activities, especially after the fall. - Aberrant Drug Related Behaviors: No aberrant behaviors were reported. [facility] Medical History Edema Spinal stenosis Other chronic pain Chronic kidney disease (CKD), stage III (moderate) Left ovarian cyst Essential (primary) hypertension Social History Are you a primary healthcare customer service to a significant other at home: No Do you presently have visiting nurse or other home services: No Patient Tobacco Use Status: Former Tobacco user Review of Systems Const Details: - Neurological: Reports chronic numbness in the leg, worsening over time. - Musculoskeletal: Reports pain in the knee and shoulder, with bruising of the buttocks after a fall. Physical Exam Exam Exam: General: awake, alert, oriented. Answers questions appropriately. Fully engaged in examination. Skin: warm, dry. Covered wound right lares. No signs of systemic infection. No warmth to surrounding skin or lymphangitis. HEENT: Normocephalic. Hearing intact. Cardiac: External chest normal in appearance. Respiratory: No cough, audible wheezing or stridor. Abdomen: without gross distension. MS: No obvious swelling or deformities. Able to transition from sit to stand unassisted. Ambulates with bilaterally normal heel strike and toe off Neurological: Oriented to person, place, time and situation. Thought process intact. Ambulates with use of rollator walker. Psychiatric: Appropriate mood and affect. Good judgment and insight. Vital Signs: Last Vital Signs Pulse 72 04/01/25 13:31 Resp 16 04/01/25 13:31 BP 122/60 04/01/25 13:31 Pulse Ox 97 04/01/25 13:31 Oxygen Delivery Method Room Air 04/01/25 13:31 BMI result Body Mass Index 29.3 Results Reviewed Results Reviewed: MRI 04/2023 Assessment & Plan Assessment & Plan (1) Spinal stenosis: Code(s): M48.00 - Spinal stenosis, site unspecified Category: Medical (2) Neurogenic claudication: Code(s): R29.818 - Other symptoms and signs involving the nervous system Category: Medical Plan Patient 1 month status post caudal MADDISON with a significant improvement in pain, function and mobility. The patient is advised to discuss with Dr. Mike the possibility of increasing the dosage of pregabalin to better manage her pain. Repeat injections are considered, but not more frequently than every three months to avoid potential side effects such as osteoporosis. She will call when she is ready to schedule the next injection. The patient is advised to continue with weight-bearing exercises as recommended by a previous physician to improve her condition. The next injection can be scheduled after May 30, she was hoping to get this before going to visit her son in [place] though she is not sure what they she had leaving. She will call the office if she wishes to schedule the injection. If she does not have time between May 30 and her departure date will consider sending short course of oral prednisone to take if needed while she is away as this has helped her in the past. Patient was informed and verbally consented to the use of an ambient scribe for clinic note documentation during this visit. Patient Instructions: - Discuss with Dr. Mike about increasing pregabalin dosage. - Schedule the next injection after May 30, considering travel plans. - Engage in weight-bearing exercises as previously recommended. Coding Level of Care Code Est Pt Level 3 (52913) Complex EM visit Add On G2211 Diagnoses Spinal stenosis M48.00 Neurogenic claudication R29.818
[2025-04-01 13:31] VITALS: BP 122/60; PULSE 72; RESP 16; O2SAT 97; BMI 29.3
--- OUTSIDE RECORDS SUMMARY | 2025-04-01 16:03 | XMS_ITS | Encounter Summary ---
Author Organization [facility] Address [address] [place] [phone] Phone Care Team Providers Care Tankerman Name Role Phone Cee Rogers A MD Primary Care Provider Cee Rogers A MD Primary Care Provider Encounter Details Date Type Department Care Team (Late st Contact Info) Description 09/09/2023 Transcribe Orders [facility] [address] [place] [address] Tita Morrissey, SAJI [address] [place] [address] Urinary tract infection without hematuria, site unspecified [...] Care Team (Late st Contact Info) Description 05/04/2025 3:30 PM EST Office Visit [facility] [address] [place] [address] Ghassan Luu MD [address] [phone] [email or web address] 10/03/2025 1:30 PM EDT Office Visit [facility] [address] [place] [address] Ghassan Luu MD [address] [place] [id number] documented as of this encounter Visit Diagnoses Diagnosis Urinary tract infection without hematuria, site unspecified- Primary Urinary incontinence, unspecified type Fatigue, unspecified type Spontaneous ecchymoses Nonspecific abnormal results of liver function study documented in this encounter Care Teams Tankerman Relationship Specialty Start Date End Date Cee Rogers MD [address] [place] [phone] [email or web address] [email or web address] - General Internal Medicine 04/18/23 12/01/23 Cee Rogers MD [address] [place] [phone] [email or web address] [email or web address] - General Internal Medicine 12/02/23 documented as of this encounter Additional Source Comments The information contained in this document represents components of the legal health record. It is not the complete legal health record.[facility]
--- OUTSIDE RECORDS SUMMARY | 2025-04-01 16:03 | XMS_ITS | Data Portability ---
Author Organization [place] - [employer], [facility] Address [address] [place] [address] Care Team Providers Care Framing Machine Tender Name Role Phone ZOLTAN JF Primary Care Provider [phone] AVERY GONZALEZ Referring Provider DEBBIE OXYGEN OTHER Assessment No assessment recorded. Plan of Treatment Reminders Order Date Submit Date Provider Last Modified By Organization Details Last Modified Time Details Appointments None record ed. Lab None record ed. Referral None record ed. Procedures None record ed. Surgeries None record ed. Imaging None record ed. Medication Orders None record ed. Patient TargetsNo targets recorded. Patient Instructions Encounter Date Encounter Id Patient Instructions Last Modified By Organization Details Last Modified Time 09/29/2018 [id number] sleep apnea: car e instructions [email or web address] Not available 09/29/2018 14:11:10 03/13/2021 [id number] epworth sleepiness scale* [email or web address] Not available 03/13/2021 14:41:08 03/20/2022 [id number] epworth sleepiness scale* [email or web address] Not available 03/23/2022 22:53:00 -CPAP compliance report reviewed in detail excellent usage and compliance -Continue CPAP she tells me she has all of her supplies -High-dose influenza vaccine given today -Follow-up 1 year -Note to Dr. Javon [email or web address] Not available 03/20/2022 14:36:42 03/25/2023 [id number] -CPAP compliance report reviewed in detail noting excellent usage and compliance -Continue CPAP she tells me she has all of her supplies -Follow-up 1 year [email or web address] Not available 03/25/2023 12:54:46 Reason for Referral None Reported. Results Created Date Observation Date Name Description Value Unit Range Abnormal Flag Note LastModifiedBy Organization Detail LastModifiedTime 09/30/19 19 09/28/2018 CPAP compl iance * No observ ation record ed. [email or web address] Not Available 2018 13:57:44 05/21/20 19 05/20/2019 CPAP compl iance * No observ ation record ed. [email or web address] Not Available 05/21 14:00:31 03/12/20 21 03/11/2021 CPAP compl iance * No observ ation record ed. [email or web address] Not Available 2020 11:21:33 03/13/20 21 03/13/2021 epwor th sleep iness scale * No observ ation record ed. BARCODE Not Available 2020 14:28:44 03/20/20 22 03/20/2022 CPAP compl iance * No observ ation record ed. [email or web address] Not Available 2021 21:03:38 03/25/20 23 03/25/2023 CPAP compl iance * No observ ation record ed. [email or web address] Not Available 03/25 16:41:52 Result Notes None recorded. Problems Name Problem SNOMED Code Status Onset Date Resolution Date Notes Provider Name and Address Organization Details Recorded Time Obstructive sleep apnea syndrome 15885501 Active 021 Sophie burgess [place] - [facility], [facility] 14:15:47 Problem Notes None recorded. Medical Equipment None Reported. Allergies No known drug allergies Medications Name Sig Start Date Stop Date Status Note LastModified by Organization Details LastModified Time losartan 50 mg tablet TAKE 1 TABLET BY MOUTH EVERY DAY active Not Available Not Available No t Available celecoxib 200 mg capsule active Not Available Not Available Not Available amoxicillin 500 mg capsule TAKE FOUR CAPSULES BY MOUTH 1 HOUR PRIOR TO APPOINTME NT 03/20 completed Not Available Not Available Not Available azithromyci n 250 mg tablet 05/14 completed Not Available Not Available Not Available valacyclovi r 1 gram tablet active Not Available Not Available Not Available hydrocodone 5 mg-acetamin ophen 325 mg tablet 05/05 completed Not Available Not Available Not Available sulfamethox azole 800 mg-trimetho prim 160 mg tablet 05/24 completed Not Available Not Available Not Available bisoprolol 2.5 mg-hydrochl orothiazide 6.25 mg tablet active Not Available Not Available Not Available tramadol 50 mg tablet active Not Available Not Available No t Available simvastatin 40 mg tablet active Not Available Not Available Not Available baclofen 20 mg tablet 05/24 completed Not Available Not Available Not Available verapamil 120 mg tablet active Not Available Not Available Not Available lorazepam 0.5 mg tablet 05/14 completed Not Available Not Available Not Available temazepam 30 mg capsule TAKE ONE CAPSULE BY MOUTH ONE TIME DAILY AT BEDTIME 05/14 completed Not Available Not Available Not Available amitriptyli ne 10 mg tablet 05/24 completed Not Available Not Available Not Available oseltamivir 75 mg capsule active Not Available Not Available Not Available nystatin 100,000 unit/gram topical cream active Not Available Not Available Not Available metronidazo le 0.75 % topical cream 03/20 completed Not Available Not Available Not Available montelukast 10 mg tablet TAKE 1 TABLET BY MOUTH DAILY AT NIGHT 05/24 completed Not Available Not Available Not Available gabapentin 100 mg capsule active Not Available Not Available Not Available lorazepam 1 mg tablet active Not Available Not Available No t Available methylpredn isolone 4 mg tablets in a dose pack 05/05 completed Not Available Not Available Not Available ketoconazol e 2 % topical cream active Not Available Not Available Not Available ondansetron 4 mg disintegrat ing tablet active Not Available Not Available N ot Available fluticasone propionate 50 mcg/actuati on nasal spray,suspe nsion active Not Available Not Available Not Available bupropion HCl XL 300 mg 24 hr tablet, extended release active Not Available Not Available Not Available bupropion HCl XL 150 mg 24 hr tablet, extended release 05/24 completed Not Available Not Available Not Available nitrofurant oin monohydrate /macrocryst als 100 mg capsule active Not Available Not Available Not Available Fluad 65yr up(PF)45 mcg(15 mcgx3)/0.5 mL intramuscul ar syringe INJECT 0.5ML INTRAMUSC ULARLY ONE TIME ONLY active Not Available Not Available No t Available Fluad 65yr up(PF)45 mcg(15 mcgx3)/0.5 mL intramuscul ar syringe INJECT 0.5ML INTRAMUSC ULARLY ONCE active Not Available Not Available No t Available Vitals Date Recorded Body height Body mass index (BMI) Body weight Heart rate Respiratory rate Oxygen saturation Oxygen saturation in Arterial blood by Pulse oximetry Systolic And Diastolic Provider Name and Address Organization Details Last Updated DateTime 9 157.48 cm 27.3 kg/m2 99053.2 6 g 60 /min 18 /min 97 % 97 % 128/76 mm[Hg] Karla Cuellar [facility], [facility] 9 13:51:42 Date Recorded Body weight Body mass index (BMI) Body height Respiratory rate Oxygen saturation Oxygen saturation in Arterial blood by Pulse oximetry Heart rate Systolic And Diastolic Provider Name and Address Organization Details Last Updated DateTime 1 43708.8 9 g 31.5 kg/m2 157.48 cm 16 /min 98 % 98 % 70 /min 122/74 mm[Hg] Sophie Lopez [facility], [facility] 1 14:20:00 Date Recorded Body weight Body mass index (BMI) Body height Oxygen saturation Oxygen saturation in Arterial blood by Pulse oximetry Heart rate Respiratory rate Systolic And Diastolic Provider Name and Address Organization Details Last Updated DateTime 2 88756.1 5 g 29.5 kg/m2 158.75 cm 98 % 98 % 64 /min 16 /min 116/72 mm[Hg] Kamille Ko [facility], [facility] 2 13:52:00 Date Recorded Body weight Body mass index (BMI) Body height Oxygen saturation Oxygen saturation in Arterial blood by Pulse oximetry Heart rate Systolic And Diastolic Provider Name and Address Organization Details Last Updated DateTime 3 43472.2 6 g 26.8 kg/m2 158.75 cm 98 % 98 % 67 /min 120/68 mm[Hg] Ginette Ortiz [facility], [facility] 3 13:10:41 Date Recorded Body height Body mass index (BMI) Body weight Respiratory rate Heart rate Oxygen saturation Oxygen saturation in Arterial blood by Pulse oximetry Systolic And Diastolic Provider Name and Address Organization Details Last Updated DateTime 9 157.48 cm 27.1 kg/m2 89217.6 7 g 18 /min 75 /min 98 % 98 % 144/88 mm[Hg] Karlamonserrat Cuellar [facility] 9 13:01:38 Social History Question Answer Notes LastModified by Organizat ion Details LastModified Time Tobacco Smoking Status Former Smoker Sallie Chicas [facility] 05/14/2017 14:19:30 How Much Tobacco Do You Chew? None Information not available 05/14/2017 Which Illicit Or Recreational Drugs Have You Used? None Information not available 05/14/2017 Alcohol Use 1-2 Per Day Information not available 05/14/2017 Year Quit Tobacco Use 1988 Information not available 05/14/2017 What Was The Date Of Your Most Recent Tobacco Screening? 03/25/2023 [email or web address] Information not available 03/25/2023 What Is Your Relationship Status? [email or web address] Information not available 03/13/2021 How Much Tobacco Do You Smoke? 1.5 PPD Information not available 05/14/2017 Sex: Unknown Functional Status Question Answer Note LastModified by Organizat ion Details LastModified Time What is your level of alcohol consumption? Moderate Information not available 05/14/2017 Are you currently employed? No [email or web address] Information not available 03/13/2021 What is your exercise level? Moderate water aerobics 5 days a week Information not available 05/14/2017 Mental Status None recorded. Family History Nothing Reported. Medical History No medical history recorded. Gynecological HistoryNo gynecological history recorded. Obstetrics History GPAL:G 0 P 0 0 0 0 Immunizations Vaccine Type Date Status Note Provider Nam e and Address Organization Details Recorded Time Influenza, high-dose, quadrivalent, PF 2 completed Pearl Alcaraz [facility] 03/22/2022 09:02:09 influenza, split (incl. purified surface antigen) 2 completed Sophie Lopez [facility] 03/13/2021 14:15:56 influenza, unspecified formulation 8 completed Sophie Lopez null, [facility], [facility] 03/13/2021 14:15:56 Influenza, split virus, trivalent, preservative 7 completed Sophie Lopez null, [facility], [facility] 03/13/2021 14:15:56 Influenza, adjuvanted, trivalent, PF 9 completed Sophie Lopez null, [facility], [facility] 03/13/2021 14:15:56 Influenza, high-dose, trivalent, PF 6 completed Sophie Lopez null, [facility], [facility] 03/13/2021 14:15:56 influenza, split (incl. purified surface antigen) 3 completed [facility] 03/13/2021 14:15:56 Influenza, split virus, trivalent, preservative 6 completed Sophie Lopez null, [facility], [facility] 03/13/2021 14:15:56 influenza, split (incl. purified surface antigen) 0 completed Sophie Lopez null, [facility], [facility] 03/13/2021 14:15:56 Tdap 6 completed [facility] 03/13/2021 14:15:56 Influenza, adjuvanted, trivalent, PF 7 completed Sophie Lopez null, [facility], [facility] 03/13/2021 14:15:56 Pneumococcal conjugate PCV 13 5 completed Sophie Lopez null, [facility], [facility] 03/13/2021 14:15:56 Influenza, adjuvanted, trivalent, PF 8 completed [facility] 03/13/2021 14:15:56 Influenza, high-dose, trivalent, PF 5 completed Sophie Lopez null, [facility], [facility] 03/13/2021 14:15:56 Novel [id number] 0 completed Sophie Tavaresfang burgess [facility], [facility] 03/13/2021 14:15:56 pneumococcal polysaccharide PPV23 8 completed Sophie Lopezdenny burgess [facility], [facility] 03/13/2021 14:15:56 Past Encounters Encounter ID Performer Location Encounter Start Date Encounter Closed Date Diagnosis/Indication Diagnosis SNOMED-CT Code Diagnosis ICD10 Code Diagnosis IMO Codes Diagnosis Note [id number] Avery Gonzalez [facility] [address] [place] [address] 05/14/2017 14:07:24 05/14/2017 15:42:45 Obstructive sleep apnea syndrome 87121552 G47.33 dx in 1997AHI of 63 and pox page to 82% AHI 2013. 3 mo analysis 197652% compliance residual < 0.9 Allergic rhinitis 441767 04 J30.9 Xerostomia 09754148 R68. 2 Essential hypertension 62855536 I10 [id number] Avery Gonzalez [facility] [address] [place] [address] 05/05/2018 13:26:08 05/05/2018 14:26:22 Obstructive sleep apnea syndrome 30901007 G47.33 chronicsev erecontrol not worse Hxdx in 1997AHI of 63 and pox page to 82% AHI 2013pillows CPAP + 12 cm H20 CPAP compliance data reviewed, excellent compliance and efficacy demonstrat ed with normal residual AHI. Patient is benefiting from the use of positive airway pressure at night with better nights of sleep and less fatigue during the day. Allergic rhinitis 597381 04 J30.9 chroniccon trolledno worse Xerostomia 51967349 R68. 2 chronicnot controlled not worse recommend stop LB4 inhibitor Essential hypertension 18387784 I10 chronicnot worse [id number] Avery Gonzalez [facility] [address] [place] [address] 09/29/2018 13:43:47 09/29/2018 14:22:55 Obstructive sleep apnea syndrome 71191274 G47.33 chronicsev erecontrol not worse Hxdx in 1996AH of 61 and pox page to 82% 2013 AHI 33 RxCPAP + 12 cm H20 CPAP compliance data reviewed, excellent compliance and efficacy demonstrat ed with normal residual AHI. Patient is benefiting from the use of positive airway pressure at night with better nights of sleep and less fatigue during the day. Essential hypertension 27019901 I10 chronicnot worse [id number] Avery Gonzalez DO [facility] [address] [place] [address] 05/24/2019 12:32:29 05/24/2019 13:22:56 Obstructive sleep apnea syndrome 64948118 G47.33 chronicsev erecontrol not worse HxHTNOSA dx in * 61* pox page to 82% 2013 AHI 33 RxCPAP + 12 cm H20 CPAP compliance data reviewed, excellent compliance and efficacy demonstrat ed with normal residual AHI. Patient is benefiting from the use of positive airway pressure at night with better nights of sleep and less fatigue during the day. [id number] Mae Floyd APRN [facility] [address] [place] [address] 03/13/2021 14:07:01 03/14/2021 09:02:12 Obstructive sleep apnea syndrome 72475851 G47.33 CPAP compliance 02/10/21 through 03/11/2021 reviewed overall usage 100% with usage greater than 4 hours 100% average use 8 hours 57 minutes on a set pressure of CPAP of 12 cm of water with a EPR level of 3 with leaks per liter per minute and the 95th percentile 15.7 with a residual AHI of 0.3 excellent compliance and usage continue CPAP no changes made chronicsev erecontrol not worse HxHTNOSA dx in * 61* pox page to 82% 2013 AHI 33 RxCPAP + 12 cm H20 CPAP compliance data reviewed, excellent compliance and efficacy demonstrat ed with normal residual AHI. Patient is benefiting from the use of positive airway pressure at night with better nights of sleep and less fatigue during the day. [id number] Mae Floyd APRN [facility] [address] [facility] [place] [address] 03/20/2022 13:25:17 03/21/2022 22:47:15 Obstructive sleep apnea syndrome 96303690 G47.33 DEEPA dx in 1996AHI* 61* pox page to 82% 2014 AHI 33 -CPAP compliance 02/10/21 through 03/11/2021 reviewed overall usage 100% with usage greater than 4 hours 100% average use 8 hours 57 minutes on a set pressure of CPAP of 12 cm of water with a EPR level of 3 with leaks per liter per minute and the 95th percentile 15.7 with a residual AHI of 0.3 excellent compliance and usage continue CPAP no changes made -CPAP compliance dated: 02/18/2022 through 03/19/2022 overall use 97% 4-hour use 97% with an average use of 9 hours 26 minutes CPAP of 12 cm of water with an EPR level of 3 with leaks per liter per minute and the 95th percentile 13.8 with a residual AHI of 0.4No changes made continue CPAP CPAP compliance data reviewed, excellent compliance and efficacy demonstrat ed with normal residual AHI. Patient is benefiting from the use of positive airway pressure at night with better nights of sleep and less fatigue during the day. Influenza vaccine needed [id number] 106 Z28.39 risks reviewedhi gh dose influenza vaccine given [id number] NICO CLEMENT APRN [facility] [address] [facility] [address] [facility] [address] [place] [address] 03/25/2023 12:58:42 03/25/2023 14:00:12 Obstructive sleep apnea syndrome 83141178 G47.33 Her E compliance from 02/21/2023 - 03/24/2023 was reviewed with her. Excellent compliance with / days used, 4-hour usage was 90%. On average she uses 8 to 9 hours per night. She has very minimal mask leak. Residual AHI 0.4. Plan:Ingrid nue CPAP at pressure 12 cm [id number] maskReview ed sleep hygiene measuresNo driving if sleepy Health Concerns Section Related Observation LastModified by Organization Detai ls LastModified Time None Recorded Concern Status LastModified by Organization Details LastModified Time None Recorded Advance Directives Directive None Recorded Payers Insurance Date Sequence Insurance Name Policy Number Policy Reyes Covered Member ID Reyes Member ID Guarantor Name 06/01/2023 1 [place] Leidy Dowd [id number] Orion Dowd 06/01/2023 2 [employer] (MEDICARE SUPPLEMENT) Leidy Dowd [id number] Orion Dowd Notes Date Note Type Note Provider Name and Address Organization Details Recorded Time 09/29/2018 text/html Sleep ApneaRepor siobhan by PatientSleep ApneaFor quality, patient reportsno loud snoring,no gasping for air,no witnessed apnea, andimproving. For severity, patient reportsseverity of deepa on ps. For alleviating factors, patient reportsrelief with cpap (+12 cmh20). For associated symptoms, patient reportsno snoring,no awakening with dry mouth,no morning headache,no awakening at night short of breath,no sweating heavily at night,no excessive sleepiness during the day (significantly improved sleeping and fatigue has improved),no suddenly falling asleep during the day,no napping, andno impaired work performace. For reason for visit, (follow-up pap compliance).ROS as noted in the HPI DO Shawn Perez[address], [place], [address], [employer] [place] [employer], [employer] 09/29/2018 14:23:44 05/24/2019 text/html Sleep ApneaRepor siobhan by PatientSleep ApneaFor quality, patient reportsno loud snoring,no gasping for air,no witnessed apnea, andimproving. For severity, patient reportsseverity of deepa on ps. For alleviating factors, patient reportsrelief with cpap (+12 cmh20). For associated symptoms, patient reportsno snoring,no awakening with dry mouth,no morning headache,no awakening at night short of breath,no sweating heavily at night,no excessive sleepiness during the day (significantly improved sleeping and fatigue has improved),no suddenly falling asleep during the day,no napping, andno impaired work performace. For reason for visit, (follow-up pap compliance).ROS as noted in the HPI Avery Gonzalez DO [address], [place], [address], [employer] [place] [facility], [facility] 05/24/2019 13:18:44 03/13/2021 text/html ROS as noted in the HPI Ms. Dowd is here today for follow up on OSAESS 1BMI 31.5Patient goes to bed around 11 pm falls asleep within minutes. Places the mask on nightly nasal pillow. No snoring, no apneic spells. Patient wakes up around 9 am feels refreshed. Using the humidifier. Denies morning headaches, no excessive burping/belching. Denies dozing off driving. Patient is using the machine and benefiting from it.'' i feel better'' Overall good tolerance and response to CPAP.PCP Dr. Montoya will have her flu shot at [facility] Mae Hortonishna, [place] [employer] [address], [place], [address], [employer] [place] [employer] 03/13/2021 14:42:04 03/20/2022 text/html ESSNCBMI 29.5DMEPCP Dr [facility] DEE[facility], HTNPatient goes to bed around 11 pm falls asleep within minutes .Places the mask on nightly. nasal pillowsNo snoring, no apneic spells.Patient wakes up around 9 am feels refreshed.no daytime nappingUsing the humidifier.Denies morning headaches, no excessive burping/belching.Santiago es dozing off driving.Patient is using the machine and benefiting from it.Overall good tolerance and response to CPAP. Mae Hortonishna, [employer] [address], [place], [address], [employer] [place] [employer] 03/20/2022 14:38:10 03/25/2023 text/html ROS as noted in the HPI Leidy is here today for a sleep apnea follow-up with PMH of hypertension She is doing well with her CPAP machine using nasal mask.She wears all night, every night for around 8 to 9 hours.She sleeps well and her sleep is refreshingShe denies any daytime nappingShe denies headaches in the morning, no excessive burping or belchingShe has good tolerance and response to CPAP machineShe is using machine and benefiting from itShe tells me she is moving to [place] in about a month to be with family and is going into assisted living ESS: 1BMI 26.8 NICO CLEMENT, [place] [employer] [address], [place], [address], [facility] - [facility], [facility] 03/25/2023 13:33:08 OBGyn Episode No OBEpisode recorded.
--- OUTSIDE RECORDS SUMMARY | 2025-04-01 16:03 | XMS_ITS | Clinical Summary ---
Author Organization [facility] Address [address] [place] [address] Phone Care Team Providers Care Queen'S Counsel Name Role Phone Cee Rogers MD Primary Care Provider Allergies No known active allergies Medications buPROPion (WELLBUTRIN XL) 300 MG ER 24 hr tablet Take 300 mg by mouth daily. Active oxyCODONE-aceta minophen (PERCOCET) 5-325 mg per [...] Encounters Date Type Department Care Team Description 02/28/2025 Orders Only [facility] [address] [place] [address] Ghassan Luu MD Obstructive sleep apnea 02/16/2025 11:30 AM EDT Office Visit [facility] [address] [place] [address] Ghassan Luu MD Obstructive sleep apnea (Primary Dx) 02/16/2025 Telephone [facility] [address] [place] [address] Ghassan Luu MD DME (CPAP from [facility]) 02/16/2025 Orders Only [facility] [address] [place] [address] Ghassan Luu MD Obstructive sleep apnea 01/19/2025 Telephone [facility] [address] [place] [address] Gabbie Vargas[place], [place] 01/05/2025 Telephone [facility] [address] [place] [address] Ghassan Luu MD Sleep Study; DME 01/04/2025 11:30 AM EDT Office Visit [facility] [address] [place] [address] Ghassan Luu MD Obstructive sleep apnea (Primary Dx) from Last 3 Months Social History Tobacco [...] Description 05/04/2025 3:30 PM EST Office Visit [facility] [address] [place] [address] [place] [address] Ghassan Luu MD [address] [place] [address] 10/03/2025 1:30 PM EDT Office Visit [facility] [address] [place] [address] Ghassan Luu MD [address] [place] [phone] Health Maintenance Due Date Last Done Comments DEPRESSION SCREENING 1954 ZOSTER VACCINES (1 of 2) 1992 OSTEOPOROSIS SCREENING INITI AL (ONE-TIME) 09/28/2007 PNEUMOCOCCAL VACCINES (50+ y ears) (2 of 2 - PCV) 11/17/2008 11/18/2007 Adult Td,Tdap Booster 09/26/2015 09/25/2005 RSV VACCINE (1 - 1-dose 75+ series) 2017 INFLUENZA VACCINE (#1) 2025 COVID-19 VACCINE ( - 2024-2 6 season) 2025 HEPATITIS A VACCINES Aged Out [...] topic Medical Devices Not on file Insurance MEDICARE SUPPLEMENT MEDICARE PART A & B MEDICARE PART A & B MEDICARE SUPPLEMENT MEDICARE PART A & B MEDICARE SUPPLEMENT MEDICARE PART A & B MEDICARE SUPPLEMENT MEDICARE PART A & B Member Subscriber Plan / Payer (Ef fective 2007-Present) Name:EstelarebelLeidy Member ID:[id number] Relation to Subscriber:Self Name:EstelarebelLeidy Subscriber ID:[id number] Payer ID:[id number] Group ID:Not on file Type:Medicare Address: [facility] [employer] [facility] [address] [place] [phone] [facility] MEDICARE SUPPLEMENT MEDICARE PART A & B Advance Directives For more information, please contact: [phone] (9AM - 5PM [facility], Friday-Friday) Documents on File Type Date Recorded Patient Loom Technician Expl anation Healthcare Proxy 04/23/2024 12:51 PM Durable Power of Nocturnist 04/23/2024 12:48 PM Care Teams Queen'S Counsel Relationship Specialty Start Date End Date Cee Rogers MD [address] [place] [phone] [email or web address] PCP - General Internal Medicine 12/02/23 Additional Source Comments The information contained in this document represents components of the legal health record. It is not the complete legal health record.[facility]
--- OUTSIDE RECORDS SUMMARY | 2025-04-01 16:03 | XMS_ITS | Patient Health Record ---
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 Medicare Supplement [address] [place] [address] [id number] Leidy Dowd Self - patient is the insured 4 Medical (General) History Medical History History ICD Code anxiety CKD II HTN GERD HLD obesity Obstructive sleep apnea pelvic mass trigeminal neuralgia Surgical History Surgery Date(Month/Year) left THR
--- OUTSIDE RECORDS SUMMARY | 2025-04-01 16:03 | XMS_ITS | Encounter Summary ---
Author Organization [facility] Address [address] [place] [phone] Phone Care Team Providers Care Brusher Hand Name Role Phone Cee Rogers A MD Primary Care Provider Cee Rogers A MD Primary Care Provider Encounter Details Date Type Department Care Team (Late st Contact Info) Description 04/18/2023 Procedure [facility], Ct Scan - [facility] [address] [place] [address] Social History Tobacco Use Types Packs/Day Years [...] 11:50 AM EDT Ana Brown RN * [place] Suicide Severity Rating Scale (Screener/Recent Self-Report) Question Answer Date of Assessment Author 1. Wish to be (Past 1 Month) No 023 11:50 AM EDT Ana Brown, BURKE 2. Non-Specific Active Suici roberto Thoughts (Past 1 Month) No 04/18/2023 11:50 AM EDT Nichole Brown RN 6. Suicidal Behavior (Lifetime) No 11:50 AM EDT Ana Brown RN documented as of this encounter Plan of Treatment Upcoming Encounters Date Type Department Care Team ([facility] st Contact Info) Description 05/04/2025 3:30 PM EST Office Visit [facility] Pulmonary, Allergy and Critical Care Medicine [address] [place] [phone] Ghassan Luu MD [address] [place] [address] [email or web address] 10/03/2025 1:30 PM EDT Office Visit [facility] Pul[facility], Allergy and Critical Care Medicine [address] [place] [address] Ghassan Luu MD [address] [place] [phone] [email or web address] documented as of this encounter Visit Diagnoses Not on filedocumented in this encounter Care Teams Brusher Hand Relationship Specialty Start Date End Date Cee Rogers MD [address] [place] [phone] [email or web address] PCP - General Internal Medicine 04/18/23 12/01/23 Cee Rogers MD [address] [place] [phone] [email or web address] PCP - General Internal Medicine 12/02/23 documented as of this encounter Additional Source Comments The information contained in this document represents components of the legal health record. It is not the complete legal health record.[facility]
--- OUTSIDE RECORDS SUMMARY | 2025-04-01 16:03 | XMS_ITS | Encounter Summary ---
Author Organization [facility] Address [address] [place] [phone] Phone Care Team Providers Care Access Specialist Name Role Phone Cee Rogers MD Primary Care Provider Encounter Details Date Type Department Care Team ([facility] st Contact Info) Description 02/28/2025 Orders Only [facility] Pul[facility], Allergy and Critical Care Medicine [address] [place] [address] Ghassan Luu MD [address] [place] [phone] [email or web address] Obstructive sleep apnea Social History Tobacco Use Types Packs/Day Years [...] Pulmonary, Allergy and Critical Care Medicine [address] [place] [address] Ghassan Luu MD [address] [place] [phone] 10/03/2025 1:30 PM EDT Office Visit [facility] Allergy [facility] Critical [facility] Medicine [address] [place] [address] Ghassan Luu MD [address] [place] [phone] documented as of this encounter Visit Diagnoses Diagnosis Obstructive sleep apnea Obstructive sleep apnea (adult) (pediatric) documented in this encounter Care Teams Access Specialist Relationship Specialty Start Date End Date Cee Rogers MD [address] [place] [address] PCP - General Internal Medicine 12/02/23 documented as of this encounter Additional Source Comments The information contained in this document represents components of the legal health record. It is not the complete legal health record.[facility]
== END 2025-04-01 14:35 | disposition home or self-care (01) ==
LOC: HO.PMC 13:25
PROVIDERS: Visit Provider Registered Nurse Emergency
DX: M48.00 Spinal stenosis, site unspecified (principal); R29.818 Other symptoms and signs involving the nervous system
CPT/HCPCS: 99213; G2211

== ENCOUNTER → 2025-04-01 13:24 | Outpatient (BNVA) | payer MEDICARE, SELFPAY | PROVIDERS: Visit Provider Registered Nurse Emergency | DX: M48.062 Spinal stenosis, lumbar region with neurogenic claudication (principal); Z98.890 Other specified postprocedural states; Z79.899 Other long term (current) drug therapy | CPT/HCPCS: 99212 ==